=== PATIENT | male | born 1950 | race Caucasian/White ===

== ENCOUNTER 2016-07-02 12:49 | Inpatient (IN) ==
[2016-07-02] MEDS ORDERED: FUROSEMIDE 40 MG/4 ML VIAL IV STA (13:51)
--- NOTE | 2016-07-02 14:12 | CT Report ---
Referring physician: Vik Nicole Exam: CT brain without contrast Date: 07/02/2016 Comparison: 03/24/2016 Reason: Headache Technique: Axial images of the head were obtained without the use of contrast. Total DLP was 1073.10 mGy*cm. Findings: The ventricles remain minimally dilated with no midline displacement. Minimal atrophy and cerebral hypodensities.. There is no evidence of an acute infarction, recent intracranial hemorrhage or abnormal mass effect. The osseous structures appear intact. The mastoid air cells and visualized paranasal sinuses are clear. Impression: No acute intracranial abnormality is identified. Persistent atrophy and microvascular disease with probable minimal compensatory dilatation of the ventricles. The CT exam was performed using one or more of the following dose reduction techniques: Automated exposure control and adjustment of the mA and/or kV according to patient size. PROCEDURE INTERPRETED AT [facility] DEPARTMENT OF RADIOLOGY Final Report Signed by: Dr. Tiffani Ross
--- NOTE | 2016-07-02 14:13 | XRay Report ---
XR chest 2V Date: 07/02/2016 1:51 PM History: Shortness of breath Comparison: 03/24/2016 Technique: PA and lateral chest Findings: The heart remains borderline in size. Reduced parenchymal findings in the lungs with stable mediastinum. No residual pleural effusions with degenerative changes. Impression: COPD with chronic scarring. Interval resolution of the edema/infiltration. PROCEDURE INTERPRETED AT [facility] DEPARTMENT OF RADIOLOGY Final Report Signed by: Dr. Tiffani Ross
--- NOTE | 2016-07-02 14:15 | Emergency Department Note ---
Debra Gonzales Gwan, am scribing for, and in the presence of, Vik Nicole MD 13:53 . Bonnie Gonzales James D, MD, personally performed the services described in this documentation, ascribed by Deion Richardson in my presence, and it is both accurate and complete 412 . Arrival - Arrival Chief Complaint: Weakness Stated Complaint: low heart rate,n/v,swollen,agitated,chest tightnes ED Nursing Triage Note: PT C/O WEAKNESS,HEADACHE, DIZZINESS, AND NAUSEA. STATES HAS FALLEN TWICE IN THE LAST 3 DAYS, DENIES SYNCOPE OR LOC. REPORTS HR HAS BEEN IN THE 40'S TODAY WITH TIGHTNESS TO HIS CHEST. Mode of Arrival: Wheelchair Limitations: No Limitations Source: Patient, Old Records Reviewed, RN Notes Reviewed - History of Present Illness HPI Narrative: Pt is a 65 y/o male who presents to the ED with a c/o weakness, AVITIA, dizziness, lethargic and nausea with an onset 3 days ago. Patient noted that he has had multiple falls and that his heart rate in the 40's today with tightness in his chest. Patient confirmed that he is followed by [place] [facility] and that he has had some edema in bilateral hands. He denies vomiting or any syncope. Patient family stated that pt use to smoke, that he has been "off-balanced" and that he currently uses Home O2. Patient is also followed by [facility] in [place] and that this is who instructed them to bring patient to ED for further evaluation. Family denies that [facility] to report to the local clinic or the clinic in [place]. Pt has a PMHx of HTN, SD, cerebrovascular accident, NIDDM, dyslipidemia , bowel obstruction, gout and stents. No other problems/complaints reported in ED. Onset (ago): day(s) Consistency: constant Severity: moderate Allergies/Adverse Reactions: Allergies Allergy/AdvReac Type Severity Reaction Status Date / Time lisinopril Allergy HIVES Verified 07/02/16 13:05 Home Medications: Home Medications Medication Instructions Recorded Confirmed Type ACETAMIN/diphenhydrAMIN 500-25 2 tablet PO BEDTIME PRN 03/24/16 07/02/16 History [Tylenol PM] Allopurinol 100 mg PO QAM 03/24/16 07/02/16 History Aspirin EC Tab 81 mg PO QAM 03/24/16 07/02/16 History Carvedilol 12.5 mg PO BID 03/24/16 07/02/16 History Clopidogrel [Plavix] 75 mg PO QAM 03/24/16 07/02/16 History Cyanocobalamin (Vitamin B-12) 1,000 mcg PO 1200 03/24/16 07/02/16 History [Vitamin B-12] DULoxetine [Cymbalta] 90 mg PO 1200 03/24/16 07/02/16 History Divalproex [Depakote] 2,000 mg PO QPM 03/24/16 07/02/16 History Furosemide Tab [Lasix Tab] 20 mg PO QAM 03/24/16 07/02/16 History Gabapentin Cap/Tab [Neurontin 600 mg PO QAM 03/24/16 07/02/16 History Cap/Tab] Levothyroxine Sodium 100 mcg PO QAM 03/24/16 07/02/16 History Multivitamin [Multivitamins] 1 each PO 1200 03/24/16 07/02/16 History Nitroglycerin Sl Tab [Nitrostat] 0.4 mg SL Q5M PRN 03/24/16 07/02/16 History Omeprazole [Prilosec] 40 mg PO QAM 03/24/16 07/02/16 History Rosuvastatin Calcium [Crestor] 20 mg PO QPM 03/24/16 07/02/16 History glipiZIDE [Glipizide] 5.5 mg PO BID 03/24/16 07/02/16 History hydrALAZINE TAB [Apresoline Tab] 25 mg PO TID 03/24/16 07/02/16 History metFORMIN [Glucophage] 500 mg PO BID W/MEALS 03/24/16 07/02/16 History Gabapentin 600 mg PO 1200 07/02/16 07/02/16 History Gabapentin 600 mg PO QPM 07/02/16 07/02/16 History Isosorbide Mononitrate [Imdur] 30 mg PO QAM 07/02/16 07/02/16 History amLODIPine [Norvasc] 10 mg PO QAM 07/02/16 07/02/16 History Review of System - Review of System 12 point system: reviewed and no additional remarkable complaints except as stated - Review of System Constitutional: Present: as per HPI, weakness, other (dizziness) Gastrointestinal: Present: as per HPI, nausea Musculoskeletal: Absent: arm pain, back pain, leg pain, neck pain Neurological: Present: as per HPI, headache, weakness Medical,Surgical,& Family Hx - Medical History Cardio: History of: Hypertension, SD Neurology: History of: Cerebrovascular Accident Endocrine: History of: Diabetes Mellitus (NIDDM), Dyslipidemia Gastrointestinal: History of: Bowel Obstruction, GERD Musculoskeletal: History of: Musculoskeletal Problems (gout) - Surgical History Cardiac Surgeries: Sugical HX of: Cardiac Catheterization (STENT X2) - Social History Smoking Status: Never smoker Frequency of Alcohol Use: Rarely Type of Drug Use: None Exam Physical Examination: GENERAL: This is a white male in no apparent distress. VITAL SIGNS: HEENT: Head is normocephalic and atraumatic. Pupils are equally round and reactive to light. Extraocular movement are intact. Oropharynx is benign with moist mucous membranes. NECK: Neck is soft and supple without tenderness. There are no masses. There is no lymphadenopathy. LUNGS: Lungs are clear to auscultation bilaterally. Chest rises symmetrically. There is no chest wall tenderness. CV: Bradycardic rate, regular rhythm ABDOMEN: Abdomen is soft, non-tender to palpation. There are no abnormal masses palpated. There is no organomegaly. Bowel sounds are present and active. SKIN: Skin is warm and dry. No rash. EXTREMITIES: Patient has full range of motion without tenderness. Pt has 2+ pitting edema bilaterally. NEUROLOGIC: Awake, alert, and oriented x4. Cranial nerves II through XII are grossly intact. There are no motorsensory deficits. PSYCHIATRIC: Normal affect. Normal mood. Vital Signs: Vital Signs Temperature 97.4 F L 07/02/16 12:58 Pulse Rate 45 L 07/02/16 12:58 Respiratory Rate 18 07/02/16 12:58 Blood Pressure 141/72 07/02/16 12:58 O2 Sat by Pulse Oximetry 96 07/02/16 12:58 Course - Consultations Consultation #1: Discussed with hospitalist. Patient will be admitted to their service. Coreg will be discontinued. Time: 14:27 Results - Labs Lab Results: I have reviewed the patients labs - EKG EKG results: interpreted by ERMD - Impressions Sinus bradycardia with a rate of [address]-T wave changes, incomplete right bundle branch block. - Diagnostic Findings Procedure: Chest x-ray: image reviewed by me (Cardiomegaly, no pleural effusions , increased pulmonary markings bilaterally.), CT: image reviewed by me (CT head : No acute intracranial lesion or hemorrhage.) Disposition Clinical Impression: Symptomatic bradycardia, Coronary artery disease Case discussed with: patient Disposition: Still a Patient Condition: Stable
--- NOTE | 2016-07-02 14:21 | EKG Report ---
Stationary ECG Study [facility] ER Test Date: 07/02/2016 1:08:06 PM Pat Name: OSMANI NEUMANN Department: Room: Gender: M [employer] Technician: : 1950 Requested by: Vik Vences Order Number: [id number] Reading MD: SYL LYLE Intervals [place] Rate: 51 P: 65 MA: 178 QRS: 29 QRSD: 115 T: 60 QT: 436 QTc: 412 Interpretive Statements SINUS BRADYCARDIA NONSPECIFIC T WAVE ABNORMALITY Electronically Signed On 07-02-16 17:14:12 CDT by SYL LYLE [email or web address]
[2016-07-02] MEDS ORDERED: FUROSEMIDE 40 MG/4 ML VIAL ONE (14:38)
[2016-07-02 14:41] LABS: Basophils % 0.7 % (0.0-0.8); Eosinophils # 0.1 10*3/uL (0.0-0.87); Eosinophils % 1.6 % (0.00-10.9); Hematocrit 33.4 VOL% (42.0-52.0); Hemoglobin 10.9 GM/DL (14.0-18.0); Immature Granulocytes % 0.2 %; Immature Granulocytes Absolute 0.01 #; Lymphocytes # 2.8 10*3/uL (1.4-4.0); Lymphocytes % 50.7 % (21.2-54.2); Mean Corpuscular HGB Conc 32.6 GM/DL (32-36); Mean Corpuscular Hemoglobin 29 PG (27-34); Mean Corpuscular Volume 89.3 FL (87-102); Mean Platelet Volume 8.9 FL (9.6-12.0); Monocytes # 0.4 10*3/uL (0.11-0.8); Monocytes % 7.6 % (1.7-12.7); Neutrophils # 2.2 10*3/uL (1.4-7.4); Neutrophils % 39.2 % (38.7-73.9); Platelet Count 219 T/CUMM (130-400); Red Blood Count 3.74 MC/CUMM (3.8-5.5); Red Cell Distribution Width 14.7 % (9.3-17.3); White Blood Count 5.5 T/CUMM (4-12)
[2016-07-02 15:31] LABS: Albumin 3.7 G/DL (3.4-5.0); Bilirubin,Total 0.5 MG/DL (0.2-1.0); Calcium 8.6 MG/DL (8.5-10.1); Free T4 (Free Thyroxine) 0.97 NG/DL (0.76-1.46); Osmolality,Calculated 283.1 MOS/KG (273-304); Potassium 3.7 MMOL/L (3.5-5.1); Thyroid Stimulating Hormone 1.71 uIU/ml (0.358-3.74); Total Protein 6.6 G/DL (6.4-8.3)
[2016-07-02] MEDS ORDERED: ACETAMINOPHEN 325 MG TABLET PO PRN ×2 (16:21→16:53)
[2016-07-02] MEDS ORDERED: GLUCAGON 1 MG VIAL IM PRN (16:21)
[2016-07-02] MEDS ORDERED: DEXTROSE 50% 25 GM/50 ML VIAL IV PRN (16:21)
--- NOTE | 2016-07-02 16:36 | Hospitalist History & Physical ---
Assessment and Plan (1) Symptomatic bradycardia Status: Acute Assessment and plan: Telemetry monitoring. Hold coreg for now. Monitor patient. Echo ordered. Current Visit: Yes History of Present Illness Chief complaint: weakness History of present illness: Mr. Petty is a 65 year old white male that presented to the ED with c/o weakness and dizziness. Pt stated that he has fallen twice in the past 2 days ( and Saturday, respectively) and that his recorded a heart rate in the 40s. Pt admits to taking coreg twice daily for his blood pressure. This dosage has been increased from 6.25 to 12.5 recently. Pt. also states he has seen edema in both hands and feet. Pt. does admit to chest tightness, but denies radiation of pain. Pt denies fever, chills, shortness of breath. Pt reports being nauseated but not vomiting. Pain is noted in RUQ. Pt. is a and has been seen by the [place] [facility]. Pt. has a history of htn, NH with stents, CVA, dm, dyslipidemia, and gout. The patient will be admitted to the hospitalist service for further eval. Home Medications Medication Instructions Recorded Confirmed Type ACETAMIN/diphenhydrAMIN 500-25 2 tablet PO BEDTIME PRN 03/24/16 07/02/16 History [Tylenol PM] Allopurinol 100 mg PO QAM 03/24/16 07/02/16 History Aspirin EC Tab 81 mg PO QAM 03/24/16 07/02/16 History Carvedilol 12.5 mg PO BID 03/24/16 07/02/16 History Clopidogrel [Plavix] 75 mg PO QAM 03/24/16 07/02/16 History Cyanocobalamin (Vitamin B-12) 1,000 mcg PO 1200 03/24/16 07/02/16 History [Vitamin B-12] DULoxetine [Cymbalta] 90 mg PO 1200 03/24/16 07/02/16 History Divalproex [Depakote] 2,000 mg PO QPM 03/24/16 07/02/16 History Furosemide Tab [Lasix Tab] 20 mg PO QAM 03/24/16 07/02/16 History Gabapentin Cap/Tab [Neurontin 600 mg PO QAM 03/24/16 07/02/16 History Cap/Tab] Levothyroxine Sodium 100 mcg PO QAM 03/24/16 07/02/16 History Multivitamin [Multivitamins] 1 each PO 1200 03/24/16 07/02/16 History Nitroglycerin Sl Tab [Nitrostat] 0.4 mg SL Q5M PRN 03/24/16 07/02/16 History Omeprazole [Prilosec] 40 mg PO QAM 03/24/16 07/02/16 History Rosuvastatin Calcium [Crestor] 20 mg PO QPM 03/24/16 07/02/16 History glipiZIDE [Glipizide] 5.5 mg PO BID 03/24/16 07/02/16 History hydrALAZINE TAB [Apresoline Tab] 25 mg PO TID 03/24/16 07/02/16 History metFORMIN [Glucophage] 500 mg PO BID W/MEALS 03/24/16 07/02/16 History Gabapentin 600 mg PO 1200 07/02/16 07/02/16 History Gabapentin 600 mg PO QPM 07/02/16 07/02/16 History Isosorbide Mononitrate [Imdur] 30 mg PO QAM 07/02/16 07/02/16 History amLODIPine [Norvasc] 10 mg PO QAM 07/02/16 07/02/16 History Allergies Allergy/AdvReac Type Severity Reaction Status Date / Time lisinopril Allergy HIVES Verified 07/02/16 13:05 Medical,Surgical,& Family Hx - Medical History Cardio: History of: Hypertension, [place] Neurology: History of: Cerebrovascular Accident Endocrine: History of: Diabetes Mellitus (NIDDM), Dyslipidemia Gastrointestinal: History of: Bowel Obstruction, GERD Musculoskeletal: History of: Musculoskeletal Problems (gout) - Surgical History Cardiac Surgeries: Sugical HX of: Cardiac Catheterization (STENT X2) - Social History Smoking Status: Never smoker Frequency of Alcohol Use: Rarely Type of Drug Use: None Marital Status: Lives With:: Spouse Functional capacity: independent ambulation - Constitutional Constitutional: Present: frequent falls, headache(s), lethargy. Absent: chills , fever(s) - EENT Eyes: Present: requires corrective lense. Absent: loss of vision Ears: Present: decreased hearing. Absent: ear discharge Nose, mouth and throat: Present: headache(s). Absent: dysphagia - Cardiovascular Cardiovascular: Present: chest pain at rest (midsternal area), edema. Absent: dyspnea - Respiratory Respiratory: Absent: cough - Gastrointestinal Gastrointestinal: Present: abdominal pain (RUQ), constipation, diarrhea, nausea. Absent: vomiting - Genitourinary Genitourinary: Absent: difficulty urinating - Neurological Neurological: Present: dizziness, frequent falls, headache(s). Absent: numbness Exam - Constitutional General appearance: normal weight, no acute distress - Head Head exam: Present: normal inspection, normocephalic - Eye Eye exam: Present: EOMI Pupils: Present: LILLY - ENT ENT exam: Present: normal exam - Neck Neck exam: Present: normal inspection - Respiratory Respiratory exam: Present: clear to auscultation bilaterally - Cardiovascular Cardiovascular exam: Present: bradycardia - GI/Abdominal GI/Abdominal exam: Present: normal bowel sounds, soft. Absent: tenderness - Extremities Exam Extremities exam: Present: normal inspection, normal capillary refill, full ROM , edema - Neurological Exam Neurological exam: Present: alert, oriented X3, normal gait - Psychiatric Psychiatric exam: Present: normal affect, normal mood, depressed - Skin Skin exam: Present: normal color, warm, dry Results - Labs CBC & BMP: 07/02/16 14:29 07/02/16 14:29 Lab Results: I have reviewed the past 24 hour labs
[2016-07-02] MEDS: INSULIN LISPRO 100 UNIT/ML SUBCUT SCH ×2 (16:56→22:14)
[2016-07-02] MEDS: ENOXAPARIN 40 MG/0.4 ML SYRINGE SUBCUT SCH (17:03)
[2016-07-02 18:27] LABS: Apearance,Urine CLEAR (Clear); Bilirubin,Urine Negative (Negative); Blood, Urine Negative (Negative); Glucose,Urine (UA) Negative (Negative); Ketones,Urine Negative (Negative); Mucus,Urine Occasional /LPF (Occasional); Nitrite,Urine Negative (Negative); Protein,Urine 30 MG/DL; RBC,Urine <1 /HPF (0-4); Squamous Epithelial Cell,Urine Occasional /HPF (0-10); Urine Color Straw (Yellow); Urine Specific Gravity 1.005 (1.001-1.035); Urine Urobilinogen < 2.0 EU/DL (0.2-1.0); WBC,Urine <1 /HPF (0-6)
[2016-07-02] MEDS ORDERED: ACETAMINOPHEN/diphenhydrAMINE 500-25 MG TABLET PO PRN (19:21)
[2016-07-02] MEDS ORDERED: NITROGLYCERIN SL 0.4 MG TABLET SL PRN (19:21)
[2016-07-02] MEDS: hydrALAZINE 25 MG TABLET PO SCH (22:11)
[2016-07-03 01:03] LABS: Troponin I Only 0.015 NG/ML (0.00-0.045)
[2016-07-03 04:43] LABS: Basophils % 0.7 % (0.0-0.8); Eosinophils # 0.1 10*3/uL (0.0-0.87); Hematocrit 34.7 VOL% (42.0-52.0); Hemoglobin 11.4 GM/DL (14.0-18.0); Immature Granulocytes % 0.2 %; Immature Granulocytes Absolute 0.01 #; Lymphocytes # 2.1 10*3/uL (1.4-4.0); Lymphocytes % 45.6 % (21.2-54.2); Mean Corpuscular HGB Conc 32.9 GM/DL (32-36); Mean Corpuscular Hemoglobin 29 PG (27-34); Mean Corpuscular Volume 88.3 FL (87-102); Mean Platelet Volume 9.2 FL (9.6-12.0); Monocytes # 0.4 10*3/uL (0.11-0.8); Monocytes % 8.4 % (1.7-12.7); Neutrophils % 43.1 % (38.7-73.9); Platelet Count 248 T/CUMM (130-400); Red Blood Count 3.93 MC/CUMM (3.8-5.5); Red Cell Distribution Width 14.6 % (9.3-17.3); White Blood Count 4.5 T/CUMM (4-12)
[2016-07-03 05:17] LABS: Calcium 8.8 MG/DL (8.5-10.1); Osmolality,Calculated 292.6 MOS/KG (273-304); Potassium 3.5 MMOL/L (3.5-5.1)
[2016-07-03 05:24] LABS: Troponin I Only < 0.015 NG/ML (0.00-0.045)
--- NOTE | 2016-07-03 07:26 | Hospitalist Progress Note ---
Assessment and Plan (1) Symptomatic bradycardia Status: Acute Current Visit: Yes Hospitalist: Subjective Interval history: 65 yo male with history of hypertension, diabetes mellitus, ESME, and coronary artery disease presenting with what appears to be symptomatic sinus bradycardia associated with the use of intermediate dose Coreg. MT interval normal with minor nonspecific QRS delay. Rhythm sinus overnight. On chronic thyroid replacement therapy. Exam - Constitutional Vitals: Period Temp Pulse Resp BP Sys/Torres Pulse Ox Last 24 Hr 96.8 F-99 F 41-52 14-18 143-187/72-86 42-98 General appearance: over weight - Respiratory Respiratory exam: Present: clear to auscultation bilaterally. Absent: rales, rhonchi, wheezes - Cardiovascular Cardiovascular exam: Present: regular rate and rhythm - GI/Abdominal GI/Abdominal exam: Present: normal bowel sounds - Extremities Exam Extremities exam: Absent: edema - Neurological Exam Neurological exam: Present: alert, oriented X3 Results - Labs CBC & BMP: 07/03/16 04:16 07/03/16 04:16 Labs: cTnI negative.
--- NOTE | 2016-07-03 08:03 | EKG Report ---
Stationary ECG Study [facility] Test Date: 07/03/2016 7:39:25 AM Pat Name: OSMANI NEUMANN Department: Room: 288 Gender: M [employer] Field Technician: SANTA : 1950 Requested by: Sukhi Williamson Order Number: [id number] Reading MD: MANUELA FRANCISCO Intervals [place] Rate: 49 P: 100 VA: 186 QRS: 24 QRSD: 118 T: 122 QT: 450 QTc: 421 Interpretive Statements SINUS BRADYCARDIA MODERATE INTRAVENTRICULAR CONDUCTION DELAY Electronically Signed On 07-03-16 11:50:44 CDT by MANUELA FRANCISCO [email or web address]
[2016-07-03] MEDS: INSULIN LISPRO 100 UNIT/ML SUBCUT SCH ×4 (08:47→22:03)
[2016-07-03] MEDS: ASPIRIN EC 81 MG TABLET PO SCH (08:49)
[2016-07-03] MEDS: LEVOTHYROXINE 100 MCG TABLET PO SCH (08:49)
[2016-07-03] MEDS: amLODIPine 10 MG TABLET PO SCH (08:49)
[2016-07-03] MEDS: GABAPENTIN 300 MG CAPSULE PO SCH ×3 (08:50→22:01)
[2016-07-03] MEDS: FUROSEMIDE 20 MG TABLET PO SCH (08:50)
[2016-07-03] MEDS: PANTOPRAZOLE 40 MG TABLET PO SCH ×2 (08:50→08:58)
[2016-07-03] MEDS: CLOPIDOGREL 75 MG TABLET PO SCH (08:50)
[2016-07-03] MEDS: hydrALAZINE 25 MG TABLET PO SCH ×3 (08:51→22:01)
[2016-07-03] MEDS: ISOSORBIDE MONONITRATE 30 MG TABLET PO SCH (08:51)
[2016-07-03] MEDS: ALLOPURINOL 100 MG TABLET PO SCH (08:51)
--- NOTE | 2016-07-03 09:11 | Ultrasound Report ---
Referring Physician: Sukhi Williamson NP Exam: US abdomen Date: July 03, 2016 Reason: Right upper quadrant abdominal pain Comparison: CT abdomen and pelvis March 24, 2016 Technique: Grayscale ultrasound images of the abdomen were obtained. Ultrasound images were captured and stored. Findings: The liver measures 22.1 cm in length, which is mildly enlarged. No suspicious hepatic lesion is identified. There may be mild hepatic steatosis. The gallbladder is not identified, but there is a history of cholecystectomy. The common bile duct is normal in size, measuring 0.4 cm in diameter. The right kidney measures 10.8 x 5.4 x 5.4 cm, and the left kidney measures 11.8 x 7.2 x 6.2 cm. There are 2 cysts at the lower pole of the right kidney. One measures 1.3 x 1.3 x 1.2 cm. The other is exophytic and measures 2.6 x 2.4 x 2.2 cm. Additional renal cysts were seen on the prior CT but are not well demonstrated on this study, likely secondary to their size and location. The pancreas is largely obscured by bowel gas. The spleen measures 10.0 x 3.9 x 3.7 cm. Splenic volume is 144 cc. The visualized IVC appears patent, and no ascites is seen. The abdominal aorta is largely obscured by bowel gas. Impression: 1. There are 2 cysts at the lower pole of the right kidney, measuring up to 2.6 cm. Additional renal cysts were seen on the previous CT but are not well demonstrated on this study, likely secondary to their size and location. Follow-up could be performed using CT. 2. Mild hepatomegaly and possible mild hepatic steatosis. 3. The gallbladder is not identified, consistent with the history of cholecystectomy. PROCEDURE INTERPRETED AT [facility] DEPARTMENT OF RADIOLOGY Final Report Signed by: Dr. Prem Hummel
[2016-07-03] MEDS: ONDANSETRON 4 MG/2 ML VIAL IV PRN (11:12)
[2016-07-03] MEDS: DULoxetine 30 MG CAPSULE PO SCH (11:53)
--- NOTE | 2016-07-03 15:51 | ECHO Report ---
Lobo Petty Exam Date: 07/03/2016 07:24 Referring Physician: Technologist: Deepika Abbott RDCS Age: 65 Ht (in): 70 Wt (lb): 260 Gender: M Exam Location: [facility] Echo Indications: Symptomatic bradycardia, Weakness, Dizziness and giddiness, NIDDM, Chest pain, unspecified, Edema, unspecified, CAD with previous stents BP: 150 / 75 HR: 55 Rhythm: Sinus Technical Quality: Technically difficult study IMPRESSIONS EF 50 % at slow heart rate. Grade I/IV diastolic dysfunction (abnormal relaxation filling pattern), normal to mildly elevated filling pressures. Moderately increased right ventricular size. Moderately increased right atrial size. Moderately increased left atrial size. Mildly thickened mitral valve. Trace mitral valve regurgitation. Aortic valve sclerosis. Trace aortic valve regurgitation. Moderate tricuspid valve regurgitation. QQF67-73 mmHG. Pulmonic valve not well visualized. Normal pericardium without effusion. Normal ascending aorta dimension. MEASUREMENTS (Male / Female) Normal Values 2D ECHO LV Diastolic Diameter PLAX 6.1 cm 4.2 - 5.9 / 3.9 - 5.3 cm LV Systolic Diameter PLAX 4.7 cm LV Fractional Shortening PLAX 23.2 % IVS Diastolic Thickness 1.3 cm 0.6 - 1.0 / 0.6 - 0.9 cm LVPW Diastolic Thickness 1.3 cm 0.6 - 1.0 / 0.6 - 0.9 cm RV Internal Dim ED PLAX 4.0 cm Aortic Root Diameter 3.4 cm LA Systolic Diameter LX 5.0 cm 3.0 - 4.0 / 2.7 - 3.8 cm DOPPLER TR Peak Velocity 300.0 cm/s TR Peak Gradient 36.0 mmHg FINDINGS Left Ventricle EF 50 % at slow heart rate. Grade I/IV diastolic dysfunction (abnormal relaxation filling pattern), normal to mildly elevated filling pressures. Right Ventricle Moderately increased right ventricular size. Right Atrium Moderately increased right atrial size. Left Atrium Moderately increased left atrial size. Mitral Valve Mildly thickened mitral valve. Trace mitral valve regurgitation. Aortic Valve Aortic valve sclerosis. Trace aortic valve regurgitation. Tricuspid Valve Morphologically normal tricuspid valve. Moderate tricuspid valve regurgitation. RHE21-82 mmHG. Pulmonic Valve Pulmonic valve not well visualized. Pericardium Normal pericardium without effusion. Aorta Normal ascending aorta dimension. Dandre Marr (Electronically Signed) Final Date: 03 July 2016 15:50
[2016-07-03] MEDS: ENOXAPARIN 40 MG/0.4 ML SYRINGE SUBCUT SCH (16:33)
[2016-07-03] MEDS ORDERED: GABAPENTIN 300 MG CAPSULE PO SCH (19:00)
[2016-07-03] MEDS ORDERED: DIVALPROEX 500 MG TABLET PO SCH (19:00)
[2016-07-03] MEDS: DIVALPROEX 500 MG TABLET PO SCH (22:00)
--- NOTE | 2016-07-04 07:47 | Hospitalist Progress Note ---
Assessment and Plan (1) Symptomatic bradycardia Status: Acute Assessment and plan: Beta-blockade sensitivity, on hold for 3 doses. Will follow need for alternative blood pressure medication. Current Visit: Yes Hospitalist: Subjective Interval history: 65 yo male presenting with symptomatic bradycardia on intermediate dose of Coreg. History of coronary artery disease, ESME, hypertension, and diabetes mellitus. Last Coreg was AM 4/10. Remains in sinus rhythm with normal intervals, no recurrent symptoms. Blood pressure not rising significantly. Exam - Constitutional Vitals: Period Temp Pulse Resp BP Sys/Torres Pulse Ox Last 24 Hr 96.9 F-98.6 F 46-56 16-20 133-156/65-86 92-100 General appearance: over weight - Respiratory Respiratory exam: Present: clear to auscultation bilaterally - Cardiovascular Cardiovascular exam: Present: regular rate and rhythm - GI/Abdominal GI/Abdominal exam: Present: normal bowel sounds - Extremities Exam Extremities exam: Absent: edema - Neurological Exam Neurological exam: Present: alert, oriented X3 Results - Labs CBC & BMP: 07/03/16 04:16 07/03/16 04:16
[2016-07-04] MEDS: INSULIN LISPRO 100 UNIT/ML SUBCUT SCH ×4 (08:34→21:52)
[2016-07-04] MEDS: amLODIPine 10 MG TABLET PO SCH (08:34)
[2016-07-04] MEDS: LOSARTAN 50 MG TABLET PO SCH (08:34)
[2016-07-04] MEDS: ALLOPURINOL 100 MG TABLET PO SCH (08:35)
[2016-07-04] MEDS: GABAPENTIN 300 MG CAPSULE PO SCH ×4 (08:35→22:19)
[2016-07-04] MEDS: PANTOPRAZOLE 40 MG TABLET PO SCH ×2 (08:35→08:36)
[2016-07-04] MEDS: ASPIRIN EC 81 MG TABLET PO SCH (08:35)
[2016-07-04] MEDS: FUROSEMIDE 20 MG TABLET PO SCH (08:35)
[2016-07-04] MEDS: CLOPIDOGREL 75 MG TABLET PO SCH (08:36)
[2016-07-04] MEDS: LEVOTHYROXINE 100 MCG TABLET PO SCH (08:36)
[2016-07-04] MEDS: ISOSORBIDE MONONITRATE 30 MG TABLET PO SCH (08:36)
[2016-07-04] MEDS: DULoxetine 30 MG CAPSULE PO SCH (11:51)
[2016-07-04] MEDS: ENOXAPARIN 40 MG/0.4 ML SYRINGE SUBCUT SCH (16:35)
[2016-07-04] MEDS: ONDANSETRON 4 MG/2 ML VIAL IV PRN (16:38)
[2016-07-04] MEDS: DIVALPROEX 500 MG TABLET PO SCH (22:16)
--- NOTE | 2016-07-05 08:30 | Hospitalist Progress Note ---
Assessment and Plan (1) Symptomatic bradycardia Status: Acute Assessment and plan: Patient was initially thought to have possible beta-eli sensitivity with symptomatic bradycardia. No significant increase in heart rate has been encountered with discontinuing the beta-eli and the patient is reporting a stronger correlation with exercise activity raising the possibility of chronotropic insufficiency. Current Visit: Yes (2) Coronary artery disease Status: Chronic Assessment and plan: Previous coronary intervention at 2 sites in the right coronary artery. Current Visit: Yes Qualifiers: Coronary Disease-Associated Artery/Lesion type: [place] artery Hospitalist: Subjective Interval history: 65-year-old male who presented with what was initially felt to be a symptomatic bradycardia on an intermediate dose of Coreg. He is a history of coronary artery disease with percutaneous interventions last fall these were performed by the card that he has in the distal right coronary circulation the describes a 70% residual stenosis in a another artery that was not addressed. He is on chronic thyroid replacement therapy is diabetic and has a history of obstructive sleep apnea and hypertension. His Coreg was held following admission on the and non-chronotropicaly active blood pressure medications were introduced and adjusted. He is maintaining sinus rhythm. He is still showing a sinus bradycardia and reports that yesterday with an effort with vigorous walking on the singer developed a recurrence of her symptoms consisting of a pleasant sensation of nausea in the abdomen with shortness of breath. There was no chest pain. Monitor shows no augmentation heart rate with activity. Will anticipate performing a stress myocardial perfusion imaging study in order to evaluate for possible chronotropic insufficiency as a source for his symptoms imaging will be undertaken in order to exclude active ischemia. Exam - Constitutional Vitals: Period Temp Pulse Resp BP Sys/Torres Pulse Ox Last 24 Hr 96.4 F-97.7 F 44-54 16-20 143-177/75-88 90-99 General appearance: over weight - Respiratory Respiratory exam: Present: clear to auscultation bilaterally. Absent: rales, rhonchi, wheezes - Cardiovascular Cardiovascular exam: Present: regular rate and rhythm - GI/Abdominal GI/Abdominal exam: Present: normal bowel sounds - Extremities Exam Extremities exam: Absent: edema - Neurological Exam Neurological exam: Present: alert, oriented X3 Results - Labs CBC & BMP: 07/03/16 04:16 07/03/16 04:16
[2016-07-05] MEDS: INSULIN LISPRO 100 UNIT/ML SUBCUT SCH ×4 (08:38→21:08)
[2016-07-05] MEDS: CLOPIDOGREL 75 MG TABLET PO SCH (09:16)
[2016-07-05] MEDS: ISOSORBIDE MONONITRATE 30 MG TABLET PO SCH (09:16)
[2016-07-05] MEDS: GABAPENTIN 300 MG CAPSULE PO SCH ×3 (09:16→21:09)
[2016-07-05] MEDS: ASPIRIN EC 81 MG TABLET PO SCH (09:16)
[2016-07-05] MEDS: LOSARTAN 50 MG TABLET PO SCH (09:16)
[2016-07-05] MEDS: ALLOPURINOL 100 MG TABLET PO SCH (09:16)
[2016-07-05] MEDS: amLODIPine 10 MG TABLET PO SCH (09:16)
[2016-07-05] MEDS: LEVOTHYROXINE 100 MCG TABLET PO SCH (09:17)
[2016-07-05] MEDS: FUROSEMIDE 20 MG TABLET PO SCH (09:17)
[2016-07-05] MEDS: PANTOPRAZOLE 40 MG TABLET PO SCH ×2 (09:17)
[2016-07-05] MEDS: DULoxetine 30 MG CAPSULE PO SCH (12:35)
[2016-07-05] MEDS: ENOXAPARIN 40 MG/0.4 ML SYRINGE SUBCUT SCH (16:34)
[2016-07-05] MEDS: DIVALPROEX 500 MG TABLET PO SCH (21:09)
[2016-07-06] MEDS: LOSARTAN 50 MG TABLET PO SCH (09:07)
[2016-07-06] MEDS: amLODIPine 10 MG TABLET PO SCH (09:07)
[2016-07-06] MEDS: GABAPENTIN 300 MG CAPSULE PO SCH ×3 (09:07→20:30)
[2016-07-06] MEDS: LEVOTHYROXINE 100 MCG TABLET PO SCH (09:08)
[2016-07-06] MEDS: ISOSORBIDE MONONITRATE 30 MG TABLET PO SCH (09:08)
[2016-07-06] MEDS: PANTOPRAZOLE 40 MG TABLET PO SCH ×2 (09:08→09:10)
[2016-07-06] MEDS: ASPIRIN EC 81 MG TABLET PO SCH (09:08)
[2016-07-06] MEDS: FUROSEMIDE 20 MG TABLET PO SCH (09:08)
[2016-07-06] MEDS: ALLOPURINOL 100 MG TABLET PO SCH (09:08)
[2016-07-06] MEDS: CLOPIDOGREL 75 MG TABLET PO SCH (09:08)
[2016-07-06] MEDS: INSULIN LISPRO 100 UNIT/ML SUBCUT SCH ×4 (09:16→20:30)
[2016-07-06 09:20] LABS: Basophils % 0.5 % (0.0-0.8); Eosinophils # 0.1 10*3/uL (0.0-0.87); Eosinophils % 1.5 % (0.00-10.9); Hematocrit 38.8 VOL% (42.0-52.0); Hemoglobin 12.9 GM/DL (14.0-18.0); Immature Granulocytes % 0.3 %; Immature Granulocytes Absolute 0.02 #; Lymphocytes # 2.4 10*3/uL (1.4-4.0); Lymphocytes % 41.4 % (21.2-54.2); Mean Corpuscular HGB Conc 33.2 GM/DL (32-36); Mean Corpuscular Hemoglobin 29 PG (27-34); Monocytes # 0.5 10*3/uL (0.11-0.8); Monocytes % 7.6 % (1.7-12.7); Neutrophils # 2.9 10*3/uL (1.4-7.4); Neutrophils % 48.7 % (38.7-73.9); Platelet Count 276 T/CUMM (130-400); Red Blood Count 4.41 MC/CUMM (3.8-5.5); Red Cell Distribution Width 14.7 % (9.3-17.3); White Blood Count 5.9 T/CUMM (4-12)
[2016-07-06] MEDS ORDERED: diphenhydrAMINE CAP 25 MG CAPSULE PO ONE (09:22)
[2016-07-06] MEDS ORDERED: POTASSIUM CHLORIDE RIDER 10 MEQ in PREMIX 1 EACH IV PRN (09:22)
[2016-07-06] MEDS ORDERED: MAGNESIUM SULF RIDER 2 GM in PREMIX 1 EACH IV PRN (09:22)
[2016-07-06] MEDS ORDERED: DIAZEPAM 5 MG TABLET PO ONE (09:22)
--- NOTE | 2016-07-06 09:22 | Cardiology Consult Note ---
Assessment and Plan - Time spent with patient Time spent with patient: Greater than 30 minutes (1) Chest pain Status: Acute Assessment and plan: SEE PLAN OF CARE LISTED BELOW Current Visit: Yes (2) Hypertension Status: Chronic Assessment and plan: SEE PLAN OF CARE LISTED BELOW Current Visit: Yes (3) Dyslipidemia Status: Chronic Assessment and plan: SEE PLAN OF CARE LISTED BELOW Current Visit: Yes (4) Obesity (BMI 35.0-39.9 without comorbidity) Status: Chronic Assessment and plan: SEE PLAN OF CARE LISTED BELOW Current Visit: Yes (5) Sleep apnea Status: Chronic Assessment and plan: SEE PLAN OF CARE LISTED BELOW Current Visit: Yes (6) Diabetes Status: Chronic Assessment and plan: SEE PLAN OF CARE LISTED BELOW Current Visit: Yes (7) Symptomatic bradycardia Status: Acute Assessment and plan: SEE PLAN OF CARE LISTED BELOW Current Visit: Yes (8) Coronary artery disease Status: Chronic Assessment and plan: SEE PLAN OF CARE LISTED BELOW Current Visit: Yes Qualifiers: Coronary Disease-Associated Artery/Lesion type: [place] artery History of Present Illness - Data of Consult Patient: new to practice Consult date: 07/06/16 Requesting Physician: Joshua Phillips - Consult Narrative Reason for consult: chest pain, known CAD History of present illness: Mr. Petty is a 65 year old male followed by inspector repairer in [place], [place] at the [facility]. Risk factors include: Age, known coronary artery disease, hypertension, dyslipidemia, diabetes, obesity, sedentary lifestyle, family history of premature coronary artery disease. Patient's last stent was May to the distal RCA. Patient was admitted for chest pain, weakness, dizziness, lightheadedness. He was found to be in sinus bradycardia in the 40s while taking Coreg. He had several falls prior to admission due to general feelings of being "off balance" . Since holding his beta blockade, heart rate has improved to the 50s. Cardiac biomarkers were negative. EKG unremarkable. Patient reports over the past several weeks he has had some chest discomfort located in the left breast area occurring primarily with exertion. This is relieved with rest. He can identify ambulation as the only sherman trigger and wrist has relieved it. Rates discomfort as a 7 on a scale of 1-10. He is currently chest pain-free. I does not radiate, cause nausea, vomiting or diaphoresis. Reading a copy of most recent cardiac catheterization as provided by 's phone records reveals the following: Left main okay, LAD diffuse nonobstructive disease with small ostial diagonal stenosis 70% as before. Not good target for any revascularization. Left circumflex occluded after early marginal/ramus branch more distal marginal fills by left to left and right to right collaterals. RCA is dominant diffuse nonobstructive, ectatic disease proximally as before with widely patent stents 2 more distally. Patient underwent stress testing in [place] April 2016 and was given favorable results. He underwent stress testing for complaints of chest pain. The chest discomfort continues. ASSESSMENT/PLAN: 1. KNOWN CAD -n.p.o. planned cardiac catheterization today 2. HYPERTENSION -will adjust medications accordingly during hospital stay for good blood pressure control. In the past he has had angioedema on lisinopril. ARB was started during this admission and we will monitor his symptoms closely. 3. DYSLIPIDEMIA -continue lipid-lowering agent. 4. DIABETES -holding metformin. 5. OBESITY -dietary counseling prior to discharge 6. SLEEP APNEA -uses sleep device appropriately 7. FAMILY HISTORY OF PREMATURE CAD -father from [place] at 58 8. CHEST PAIN -chest pain is concerning for angina. Had normal stress test June 2016 with continued chest discomfort. 9. BRADYCARDIA - holding lo blocking agents. May benefit from event monitor at discharge CC: Joshua Phillips MD - Home Medications and Allergies Home Medications: Home Medications Medication Instructions Recorded Confirmed Type ACETAMIN/diphenhydrAMIN 500-25 2 tablet PO BEDTIME PRN 03/24/16 07/02/16 History [Tylenol PM] Allopurinol 100 mg PO QAM 03/24/16 07/02/16 History Aspirin EC Tab 81 mg PO QAM 03/24/16 07/02/16 History Carvedilol 12.5 mg PO BID 03/24/16 07/02/16 History Clopidogrel [Plavix] 75 mg PO QAM 03/24/16 07/02/16 History Cyanocobalamin (Vitamin B-12) 1,000 mcg PO 1200 03/24/16 07/02/16 History [Vitamin B-12] DULoxetine [Cymbalta] 90 mg PO 1200 03/24/16 07/02/16 History Divalproex [Depakote] 2,000 mg PO QPM 03/24/16 07/02/16 History Furosemide Tab [Lasix Tab] 20 mg PO QAM 03/24/16 07/02/16 History Gabapentin Cap/Tab [Neurontin 600 mg PO QAM 03/24/16 07/02/16 History Cap/Tab] Levothyroxine Sodium 100 mcg PO QAM 03/24/16 07/02/16 History Multivitamin [Multivitamins] 1 each PO 1200 03/24/16 07/02/16 History Nitroglycerin Sl Tab [Nitrostat] 0.4 mg SL Q5M PRN 03/24/16 07/02/16 History Omeprazole [Prilosec] 40 mg PO QAM 03/24/16 07/02/16 History Rosuvastatin Calcium [Crestor] 20 mg PO QPM 03/24/16 07/02/16 History glipiZIDE [Glipizide] 5.5 mg PO BID 03/24/16 07/02/16 History hydrALAZINE TAB [Apresoline Tab] 25 mg PO TID 03/24/16 07/02/16 History metFORMIN [Glucophage] 500 mg PO BID W/MEALS 03/24/16 07/02/16 History Gabapentin 600 mg PO 1200 07/02/16 07/02/16 History Gabapentin 600 mg PO QPM 07/02/16 07/02/16 History Isosorbide Mononitrate [Imdur] 30 mg PO QAM 07/02/16 07/02/16 History amLODIPine [Norvasc] 10 mg PO QAM 07/02/16 07/02/16 History Allergies/Adverse Reactions: Allergies Allergy/AdvReac Type Severity Reaction Status Date / Time lisinopril Allergy HIVES Verified 07/02/16 13:05 Review of systems: REVIEW OF SYSTEMS: - Constitutional Constitutional: Present: Fatigue, near syncope.. Absent, anorexia, night sweats - EENT Eyes: Absent: blurry vision, loss of vision, diplopia Ears: Absent: decreased hearing, ear pain, ear discharge - Cardiovascular Cardiovascular: Present: chest pain with exertion, dyspnea on exertion. Denies edema, palpitations. Absent: chest pain with deep breath, claudication, - Respiratory Respiratory: Present: POOL, cough. Absent: wheezing, hemoptysis, change in phlegm color - Gastrointestinal Gastrointestinal: Present: constipation. Absent: adbominal pain, hematemesis , hematochezia, melena, change in bowel habits, nausea - Genitourinary Genitourinary: Absent: difficulty urinating, dysuria, urinary hesitancy, flank pain - Musculoskeletal Musculoskeletal: Present: back pain Absent: joint swelling, muscle cramps, muscle weakness - Neurological Neurological: Present: normal gait without frequent falls. Absent: dizziness, hemiparesis - Psychiatric Psychiatric: Absent: anxiety, depression, difficulty concentrating - Endocrine Endocrine: Present: fatigue. Absent: cold intolerance, heat intolerance, polyuria, polyphagia, polydipsia - Hematologic/Lymphatic Hematologic/Lymphatic: Present: easy bruising. Absent: easy bleeding, easy bruisability -Integumentary Integumentary: Absent: lesions, rashes, skin breakdown Medical,Surgical,& Family Hx - Medical History Cardio: History of: CAD, Hypertension, [place] Neurology: History of: Cerebrovascular Accident Endocrine: History of: Diabetes Mellitus (NIDDM), Dyslipidemia Gastrointestinal: History of: Bowel Obstruction, GERD Musculoskeletal: History of: Musculoskeletal Problems (gout) - Surgical History Cardiac Surgeries: Sugical HX of: Cardiac Catheterization (STENT X2) - Social History Smoking Status: Never smoker Have you smoked in the last 12 months: No Frequency of Alcohol Use: Rarely Type of Drug Use: None Marital Status: Lives With:: Spouse Functional capacity: independent ambulation Physical Examination Vital Signs Temp Pulse Resp BP Pulse Ox 97.4 F L 45 L 18 141/72 96 07/02/16 12:58 07/02/16 12:58 07/02/16 12:58 07/02/16 12:58 07/02/16 12:58 General: [Appears well with no apparent distress.] [Pleasant and cooperative. ] [Appears comfortable.] HEENT: [PERRL, normocephalic, atraumatic. Mucous membranes moist. No jaundice noted. Conjunctiva moist and clear, sclerae anicteric] Neck: No JVD/HJR, no thyromegaly or lymphadenopathy noted. No carotid bruit appreciated Cardiac: [Regular rate and rhythm.] [No murmur rub or gallop.] Lungs: [Clear to auscultation without accessory muscle use to assist the respiratory pattern.] Not requiring oxygen Abdomen: Soft, bowel sounds normoactive. Nontender and nondistended. No abdominal bruit or thrill noted. No masses noted. Musculoskeletal: No fluid collection. Decreased range of motion is noted. Extremities: No clubbing, cyanosis noted. [ No edema noted.] Upper extremity pulses 2+. Lower extremity pulses 2+. Capillary refill less than 3 seconds. Skin: No unusual lesions or rashes. No skin breakdown appreciated. Neuro: Awake, alert and oriented 3. Moves all extremities well without hemiparesis or paralysis. No essential tremor is appreciated. Result/EKG - Labs CBC & BMP: 07/06/16 08:31 07/03/16 04:16 Lab Results: I have reviewed the past 24 hour labs Labs: Laboratory Results - last 24 hr 07/05/16 07/05/16 07/05/16 11:42 15:37 19:20 POC Glucose 131 H 94 241 H 07/06/16 07:52 POC Glucose 119 H - Diagnostic Findings Procedure: Chest x-ray: report reviewed by me - EKG EKG results: interpreted by me EKG shows: bradycardia
[2016-07-06 09:31] LABS: PT Patient Result 10.5 SECS
[2016-07-06 09:44] LABS: Magnesium 2.1 MG/DL (1.8-2.4); Potassium 4.3 MMOL/L (3.5-5.1)
--- NOTE | 2016-07-06 10:28 | Hospitalist Progress Note ---
Assessment and Plan - Time spent with patient Time spent with patient: Greater than 30 minutes (1) Chest pain Problem details: Continue ASA and plavix. Appreciate Cards assistance. Cardiac cath per Cards today. Status: Acute Current Visit: Yes (2) Symptomatic bradycardia Status: Acute Assessment and plan: Continue tele monitoring. Current Visit: Yes (3) Coronary artery disease Problem details: Continue home meds. Status: Chronic Current Visit: Yes Qualifiers: Coronary Disease-Associated Artery/Lesion type: [place] artery (4) Hypertension Problem details: Continue current treatment plan. Status: Chronic Current Visit: Yes (5) Dyslipidemia Problem details: Continue current treatment plan. Status: Chronic Current Visit: Yes (6) Obesity (BMI 35.0-39.9 without comorbidity) Problem details: Educated pt on healthy diet, exercist option in order to loose weight. Status: Chronic Current Visit: Yes (7) Sleep apnea Status: Chronic Current Visit: Yes (8) Diabetes Problem details: Continue current treatment plan Status: Chronic Current Visit: Yes Hospitalist: Subjective Interval history: 07/06/16: No overnight acute event. Still feeling dizzy sometimes. Still sinus adelaide on tele. Will do cardiac cath today per Cards. Pt has cardiac stent put in at [facility] about 2 years ago at [facility] in [place], [place]. Deny fever, wheezing, SOB, cough, N/V/D, abd pain, dysuria or rash. Per Dr. Phillips's note on 07/05/16: 65-year-old male who presented with what was initially felt to be a symptomatic bradycardia on an intermediate dose of Coreg. He is a history of coronary artery disease with percutaneous interventions last fall these were performed by the card that he has in the distal right coronary circulation the describes a 70% residual stenosis in a another artery that was not addressed. He is on chronic thyroid replacement therapy is diabetic and has a history of obstructive sleep apnea and hypertension. His Coreg was held following admission on the and non- chronotropicaly active blood pressure medications were introduced and adjusted. He is maintaining sinus rhythm. He is still showing a sinus bradycardia and reports that yesterday with an effort with vigorous walking on the singer developed a recurrence of her symptoms consisting of a pleasant sensation of nausea in the abdomen with shortness of breath. There was no chest pain. Monitor shows no augmentation heart rate with activity. Will anticipate performing a stress myocardial perfusion imaging study in order to evaluate for possible chronotropic insufficiency as a source for his symptoms imaging will be undertaken in order to exclude active ischemia. Exam - Constitutional Vitals: Period Temp Pulse Resp BP Sys/Torres Pulse Ox Last 24 Hr 97.1 F-98.7 F 50-55 16-20 141-152/71-87 96-99 Exam: GENERAL: NAD, AAOx3. HEENT: Pupils equally round and reactive to light, conjunctivae clear. TMs francois and translucent. Normal lips, teeth and gums. NECK: Supple without mass. CHEST: Normal shape, good air movement, no retractions. CV: Bradycardia, no gallops, 2+ peripheral pulses LUNGS: Clear to auscultation; no rales, rhonchi, or wheezes. ABDOMEN: Soft, nontender, and no hepatosplenomegaly. SKIN: No rash or edema. LYMPH: No anterior or posterior cervical, or supraclavicular lymphadenopathy. NEURO: No gross motor deficits noted. Results - Labs CBC & BMP: 07/06/16 08:31 07/06/16 08:31
[2016-07-06] MEDS: SODIUM CHLORIDE 0.45% 1,000 ML IV SCH ×2 (10:46→17:23)
[2016-07-06] MEDS: DULoxetine 30 MG CAPSULE PO SCH (12:07)
[2016-07-06] MEDS ORDERED: HEPARIN/NACL 0.9% 2 UNITS/ML 1,000 ML IV ONE (13:00)
[2016-07-06] MEDS ORDERED: LIDOCAINE 1% 20 ML VIAL ONE (13:00)
[2016-07-06] MEDS ORDERED: NITROGLYCERIN DRIP 50 MG/250 ML BOTTLE IV ONE (14:02)
[2016-07-06] MEDS ORDERED: VERAPAMIL 5 MG/2 ML VIAL ONE (14:02)
[2016-07-06] MEDS ORDERED: ENOXAPARIN 60 MG/0.6 ML SYRINGE ONE (14:16)
--- NOTE | 2016-07-06 14:41 | Cardiac Catheterization ---
Date of Procedure:: 07/06/16 Procedure: CLINICAL HISTORY: The patient has known multivessel coronary artery disease. He presented with bradycardia and also had some chest pain symptoms. He is undergoing cardiac catheterization for definitive coronary artery assessment and possible revascularization. PROCEDURES PERFORMED: 1. Right radial percutaneous arteriotomy 2. Left heart catheterization 3. Resting hemodynamics 4. Left ventriculography. 5. Coronary arteriography 6. Hemoband placement DESCRIPTION OF PROCEDURE: After obtaining informed consent, the patient was taken to the candlemaking laborer, prepped and draped in the usual sterile manner. We accessed the right radial artery using modified Seldinger technique in the usual fashion. We placed a 6-Lux[place]bourgish slim sheath without difficulty. We then used a Tig catheter to engage the right coronary and left main coronary arteries to perform angiography in multiple orthogonal views. There were no problems or complications during the procedure. We then used an angled pigtail catheter to perform a left heart catheterization with left ventriculogram and pressure measurement in the usual fashion. After removing the catheter, we placed a HemoBand and removed the sheath without difficulty. There were no problems during the case. HEMODYNAMICS: Please see the accompanying data sheet. CORONARIES: The left main coronary artery is a very large caliber vessel which trifurcates into the left anterior descending left circumflex flex and ramus intermedius branches. The left main coronary artery is angiographically free of significant obstructive disease. The left main coronary artery is angiographically free of significant obstructive disease. The left circumflex coronary artery is a large caliber vessel which is occluded in its midsegment. The distal circumflex coronary artery is seen filling by collaterals from the left and from the right. The ramus intermedius is essentially a bifurcating vessel at its origin. Both sides of the bifurcation have luminal disease. The more anterior branch has a ostial/proximal 70% stenosis. The remainder of both vessels have moderate diffuse luminal irregularities. The left anterior descending is a large caliber vessel which gives off a diagonal in its midsegment which is a relatively small vessel. There are diffuse luminal irregularities in the LAD of up to 40% but nothing seems to be high-grade. There is a 70% stenosis in the ostium of the diagonal branch. The right coronary artery is a moderate to large caliber vessel which gives off a posterior descending artery and a posterolateral system. It also provides collateral filling of the distal left circumflex coronary artery. There is diffuse moderate to heavy plaque burden throughout the right coronary artery of up to 50-60% stenosis, but I don't see any focal high-grade obstructive disease. There are stents in the mid to distal right coronary artery which appeared to be widely patent. LEFT VENTRICULOGRAPHY: Left ventriculogram shows left ventricular ejection fraction of approximately 50% with normal regional wall motion. IMPRESSION: 1. Known occlusion of the left circumflex coronary artery with collateral filling from both the left and right. 2. Moderate diffuse disease involving the right, left anterior descending, and ramus intermedius branches as described above. 3. Preserved left ventricular systolic function. PLAN: Although this is the first time the patient has undergone cardiac catheterization at this institution, he had a old cath report which describes essentially the same findings that we see today. He had a low risk noninvasive evaluation recently by his primary advertising sales executive. At this point, I think continued medical management would be the best choice. After recovery from his procedure I think he could be discharged home later today. He can follow-up with his primary advertising sales executive or with myself or one of the other [facility] advertising sales executive if he would like. Surgeon / Physician: Dorian Carter - Medications / Follow-up
--- NOTE | 2016-07-06 14:54 | Event Note ---
Patient underwent cardiac catheterization via right radial approach. Medical management will ensue. Please see cardiac catheterization report. After 2 hours, patient is stable for discharge home post cath. Patient will follow up with his administrator social welfare at the [facility]
[2016-07-06] MEDS: ENOXAPARIN 40 MG/0.4 ML SYRINGE SUBCUT SCH (16:18)
[2016-07-06] MEDS: DIVALPROEX 500 MG TABLET PO SCH (20:29)
[2016-07-07 05:18] LABS: Basophils # 0.1 10*3/uL (0.0-0.2); Basophils % 0.9 % (0.0-0.8); Eosinophils # 0.1 10*3/uL (0.0-0.87); Eosinophils % 1.7 % (0.00-10.9); Hematocrit 38.9 VOL% (42.0-52.0); Hemoglobin 12.9 GM/DL (14.0-18.0); Immature Granulocytes % 0.2 %; Immature Granulocytes Absolute 0.01 #; Lymphocytes # 2.7 10*3/uL (1.4-4.0); Lymphocytes % 46.5 % (21.2-54.2); Mean Corpuscular HGB Conc 33.2 GM/DL (32-36); Mean Corpuscular Hemoglobin 29 PG (27-34); Mean Corpuscular Volume 88.4 FL (87-102); Mean Platelet Volume 8.9 FL (9.6-12.0); Monocytes # 0.6 10*3/uL (0.11-0.8); Monocytes % 9.9 % (1.7-12.7); Neutrophils # 2.4 10*3/uL (1.4-7.4); Neutrophils % 40.8 % (38.7-73.9); Platelet Count 244 T/CUMM (130-400); Red Cell Distribution Width 14.7 % (9.3-17.3); White Blood Count 5.9 T/CUMM (4-12)
[2016-07-07 05:41] LABS: Calcium 8.8 MG/DL (8.5-10.1); Magnesium 2.2 MG/DL (1.8-2.4); Potassium 3.5 MMOL/L (3.5-5.1)
[2016-07-07 05:57] LABS: Risk Ratio 3.47; VLDL CHOLESTEROL 28.6 MG/DL
[2016-07-07] MEDS: SODIUM CHLORIDE 0.45% 1,000 ML IV SCH ×2 (07:35→12:04)
[2016-07-07] MEDS: INSULIN LISPRO 100 UNIT/ML SUBCUT SCH ×2 (08:38→12:37)
[2016-07-07] MEDS: GABAPENTIN 300 MG CAPSULE PO SCH ×2 (09:40→12:51)
[2016-07-07] MEDS: PANTOPRAZOLE 40 MG TABLET PO SCH ×2 (09:40→12:04)
[2016-07-07] MEDS: LEVOTHYROXINE 100 MCG TABLET PO SCH (09:40)
[2016-07-07] MEDS: amLODIPine 10 MG TABLET PO SCH (09:40)
[2016-07-07] MEDS: ALLOPURINOL 100 MG TABLET PO SCH (09:40)
[2016-07-07] MEDS: CLOPIDOGREL 75 MG TABLET PO SCH (09:40)
[2016-07-07] MEDS: ASPIRIN EC 81 MG TABLET PO SCH (09:40)
[2016-07-07] MEDS: LOSARTAN 50 MG TABLET PO SCH (09:40)
[2016-07-07] MEDS: FUROSEMIDE 20 MG TABLET PO SCH (09:40)
[2016-07-07] MEDS: ISOSORBIDE MONONITRATE 30 MG TABLET PO SCH (09:40)
--- NOTE | 2016-07-07 12:17 | Cardiology Progress Note ---
Assessment and Plan (1) Symptomatic bradycardia Status: Acute Assessment and plan: This resolved with stopping his carvedilol. I think we can discharge him home. I would like to see him back in the clinic in one to 2 weeks. I will be happy to see him sooner if needed. There was a question about getting a Holter monitor, but I think we can hold off on that unless it becomes clinically indicated after stopping the carvedilol. Current Visit: Yes (2) Hypertension Problem details: Continue current treatment plan. Status: Chronic Assessment and plan: I want to stop his amlodipine and I am starting nifedipine extended release at bedtime. I find at the nifedipine is much more effective at controlling blood pressure when given at bedtime. Current Visit: Yes (3) Coronary artery disease Problem details: Continue home meds. Status: Chronic Assessment and plan: He has chronic severe but stable coronary artery disease which we are managing medically at this time. Current Visit: Yes Qualifiers: Coronary Disease-Associated Artery/Lesion type: nav[place] artery (4) Diabetes Problem details: Continue current treatment plan Status: Chronic Current Visit: Yes (5) Dyslipidemia Problem details: Continue current treatment plan. Status: Chronic Current Visit: Yes (6) Obesity (BMI 35.0-39.9 without comorbidity) Problem details: Educated pt on healthy diet, exercist option in order to loose weight. Status: Chronic Current Visit: Yes (7) Sleep apnea Status: Chronic Current Visit: Yes Cardiology - PN: Subj Interval history: The patient is feeling very well today. He has had no further symptom at bradycardia or lightheadedness. He has not had any anginal symptoms. He did not have any complications from his cardiac catheterization from the right radial artery. We had a long discussion today about managing his heart disease and his blood pressure. I'm going to make some minor changes in his antihypertensives. I think we can discharge him home today and I will follow- up with him in a week or so in the clinic. Current Medications Acetaminophen (Tylenol Tab) 650 mg PO Q4H PRN PRN Reason: Fever, Headache, Mild Pain Acetaminophen/Diphenhydramine HCl (Tylenol Pm) 2 tablet PO BEDTIME PRN PRN Reason: Sleep [facility] [place] Admin: 07/07/16 09:40 Dose: 100 mg Aspirin () 81 mg PO QAM [facility] Last Admin: 07/07/16 09:40 Dose: 81 mg Clopidogrel Bisulfate (Plavix) [facility] [place] Admin: 07/07/16 09:40 Dose: 75 mg Dextrose/Water (D50) 25 gm IV PRN PRN PRN Reason: Hypoglycemia with IV access Divalproex Sodium (Depakote) 2,000 mg PO BEDTIME [facility] Last Admin: 07/06/16 20:29 Dose: 2,000 mg Duloxetine HCl (Cymbalta) 90 mg PO 1200 [facility] Last Admin: 07/06/16 12:07 Dose: 90 mg Enoxaparin Sodium (Lovenox) 40 mg SUBCUT Q24H [facility] Last Admin: 07/06/16 16:18 Dose: Not Given Furosemide (Lasix Tab) 20 mg PO [facility] Last Admin: 07/07/16 09:40 Dose: 20 mg Gabapentin (Neurontin Cap/Tab) 600 mg PO 1200 [facility] Last Admin: 07/06/16 12:07 Dose: 600 mg Gabapentin (Neurontin Cap/Tab) 600 mg PO [facility] Last Admin: 07/07/16 09:40 Dose: 600 mg Gabapentin (Neurontin Cap/Tab) 600 mg PO BEDTIME [facility] Last Admin: 07/06/16 20:30 Dose: 600 mg Glucagon () 1 mg IM PRN PRN PRN Reason: Hypoglycemia w/o IV access Sodium Chloride (1/2ns) 1,000 mls @ 125 mls/hr IV .Q8H [facility] Last Admin: 07/07/16 12:04 Dose: Not Given Potassium Chloride 10 meq/ (Premix) 100 mls @ 100 mls/hr IV Q1H PRN PRN Reason: Potassium less than 3.5 Magnesium Sulfate 2 gm/ Premix 50 mls @ 25 mls/hr IV ONCE PRN PRN Reason: Magnesium less than 1.8 Insulin Human Lispro (Humalog) 0 unit SUBCUT ACHS [facility] PRN Reason: Protocol Last Admin: 07/07/16 08:38 Dose: Not Given Isosorbide Mononitrate (Imdur) 30 mg PO [facility] Last Admin: 07/07/16 09:40 Dose: 30 mg Levothyroxine Sodium (Synthroid Tab) 100 mcg PO [facility] Last Admin: 07/07/16 09:40 Dose: 100 mcg Losartan Potassium (Cozaar) 100 mg PO DAILY [facility] Last Admin: 07/07/16 09:40 Dose: 100 mg Nifedipine (Procardia Xl) 30 mg PO BEDTIME [facility] Nitroglycerin (Nitrostat) 0.4 mg SL Q5M PRN PRN Reason: Chest Pain Ondansetron HCl (Zofran Inj) 4 mg IV Q4H PRN PRN Reason: Nausea Last Admin: 07/04/16 16:38 Dose: 4 mg Pantoprazole Sodium (Protonix Tab) 40 mg PO DAILY [facility] Last Admin: 07/07/16 09:40 Dose: 40 mg Pantoprazole Sodium (Protonix Tab) 40 mg PO QAM [facility] Last Admin: 07/07/16 12:04 Dose: Not Given Exam (Progress Note) - Constitutional Vitals: Period Temp Pulse Resp BP Sys/Torres Pulse Ox Last 24 Hr 96.0 F-97.2 F 47-64 16-20 132-175/76-93 93-99 Exam: General: Appears well developed, well nourished, no apparent distress HEENT: Normocephalic, atraumatic Neck: Supple Neck, Midline Trachea Cardiac: Reg Rate and Rhythm, out of 6 systolic Murmur, no gallop, no rub Lungs: Clear to auscultation, No Wheeze, Rales, Rhonchi Neuro: Cranial Nerve 2-12 Intact, Motor Function Grossly Intact Abdomen: Soft, Active Bowel Sounds, No Masses, No Pulsations/Bruits Skin: Normal color, no rash Extremities: No Clubbing, No Cyanosis, No Edema, Normal Upper Extr. Pulses, no, dictation from right radial cardiac cath access site Musculoskeletal: No acute abnormality noted Psychiatric: The patient does not appear to be anxious or depressed Result/EKG - Labs CBC & BMP: 07/07/16 04:53 07/07/16 04:53 Lab Results: I have reviewed the past 24 hour labs Labs: Laboratory Results - last 24 hr 07/06/16 07/06/16 07/07/16 15:39 19:52 04:53 WBC 5.9 RBC 4.40 Hgb 12.9 L Hct 38.9 L MCV 88.4 MCH 29 MCHC 33.2 RDW 14.7 Plt Count 244 MPV 8.9 L Neut % (Auto) 40.8 Lymph % (Auto) 46.5 Stark % (Auto) 9.9 Eos % (Auto) 1.7 Baso % (Auto) 0.9 H Neut # (Auto) 2.4 Lymph # (Auto) 2.7 Stark # (Auto) 0.6 Eos # (Auto) 0.1 Baso # (Auto) 0.1 Immature Gran % 0.2 Nucleated RBC % 0.0 Immature Gran # 0.01 Nucleated RBCs # 0.00 Sodium Potassium Chloride Carbon Dioxide Anion Gap BUN Creatinine GFR Calculation BUN/Creatinine Ratio Glucose POC Glucose 115 H 170 H Calculated Osmolality Calcium Magnesium Triglycerides Cholesterol LDL Cholesterol VLDL Cholesterol HDL Cholesterol Heart Disease Risk Ratio 07/07/16 07/07/16 04:53 04:53 WBC RBC Hgb Hct MCV MCH MCHC RDW Plt Count MPV Neut % (Auto) Lymph % (Auto) Stark % (Auto) Eos % (Auto) Baso % (Auto) Neut # (Auto) Lymph # (Auto) Stark # (Auto) Eos # (Auto) Baso # (Auto) Immature Gran % Nucleated RBC % Immature Gran # Nucleated RBCs # Sodium 143 Potassium 3.5 Chloride 107 Carbon Dioxide 30 Anion Gap 9.5 BUN 14 Creatinine 0.90 GFR Calculation 119 BUN/Creatinine Ratio 15.00 Glucose 126 H POC Glucose Calculated Osmolality 287.0 Calcium 8.8 Magnesium 2.2 Triglycerides 143 Cholesterol 201 H LDL Cholesterol 118.0 VLDL Cholesterol 28.6 HDL Cholesterol 58 Heart Disease Risk Ratio 3.47 - EKG EKG results: interpreted by me
[2016-07-07 12:48] VITALS: BP 174/81
[2016-07-07] MEDS: DULoxetine 30 MG CAPSULE PO SCH (12:51)
--- NOTE | 2016-07-07 13:36 | Discharge Summary ---
Hospital Course - Hospital Course Hospital Course: Cardiology consulted during pt's hospitalization. Cardiac cath on 07/06/16. HR around 60bpm while holding his betablocker. Pt deny further dizziness episode. Stable to be dc home per Cardiology and DC Coreg and Norvasc, add Nifedipine at night time to control BP per Cardiology. F/u with Cardiology clinic in 1-2 weeks. Continue other home meds. Per HPI on 07/02/16: Chief complaint: weakness History of present illness: Mr. Petty is a 65 year old white male that presented to the ED with c/o weakness and dizziness. Pt stated that he has fallen twice in the past 2 days ( and Saturday, respectively) and that his recorded a heart rate in the 40s. Pt admits to taking coreg twice daily for his blood pressure. This dosage has been increased from 6.25 to 12.5 recently. Pt. also states he has seen edema in both hands and feet. Pt. does admit to chest tightness, but denies radiation of pain. Pt denies fever, chills, shortness of breath. Pt reports being nauseated but not vomiting. Pain is noted in RUQ. Pt. is a and has been seen by the [facility] physicians. Pt. has a history of htn, [place] with stents, CVA, dm, dyslipidemia, and gout. - Time spent with patient Time with patient DS: Greater than 30 minutes (Time spent: 45 minutes.) Diagnosis - Discharge Diagnosis (1) Chest pain Status: Resolved (2) Symptomatic bradycardia Status: Resolved (3) Coronary artery disease Status: Chronic (4) Hypertension Status: Chronic (5) Dyslipidemia Status: Chronic (6) Obesity (BMI 35.0-39.9 without comorbidity) Status: Chronic (7) Sleep apnea Status: Chronic (8) Diabetes Status: Chronic Discharge Plan - Discharge Data Condition at Discharge: Stable Discharge Diet: diabetic diet, heart healthy - Discharge Medications New Allopurinol [Zyloprim] 100 mg PO QAM tablet Aspirin EC Tab 81 mg PO QAM tablet Clopidogrel [Plavix] 75 mg PO QAM tablet Divalproex [Depakote] 2,000 mg PO BEDTIME tablet Furosemide Tab [Lasix Tab] 20 mg PO QAM tablet Gabapentin Cap/Tab [Neurontin Cap/Tab] 600 mg PO BEDTIME capsule Gabapentin Cap/Tab [Neurontin Cap/Tab] 600 mg PO 1200 capsule Gabapentin Cap/Tab [Neurontin Cap/Tab] 600 mg PO QAM capsule Levothyroxine Tab [Synthroid Tab] 100 mcg PO QAM tablet Losartan [Cozaar] 100 mg PO DAILY tablet Nitroglycerin Sl Tab [Nitrostat] 0.4 mg SL Q5M PRN #0 tablet PRN Reason: Chest Pain ACETAMIN/diphenhydrAMIN 500-25 [Tylenol PM] 2 tablet PO BEDTIME PRN #0 tablet PRN Reason: Sleep DULoxetine [Cymbalta] 90 mg PO 1200 capsule Isosorbide Mononitrate [Imdur] 30 mg PO QAM tablet NIFEdipine XL TAB [Procardia Xl] 30 mg PO BEDTIME #30 tablet Continue Multivitamin [Multivitamins] 1 each PO 1200 metFORMIN [Glucophage] 500 mg PO BID W/MEALS Rosuvastatin Calcium [Crestor] 20 mg PO QPM Cyanocobalamin (Vitamin B-12) [Vitamin B-12] 1,000 mcg PO 1200 hydrALAZINE TAB [Apresoline Tab] 25 mg PO TID glipiZIDE [Glipizide] 5.5 mg PO BID Omeprazole [Prilosec] 40 mg PO QAM Discontinued Nitroglycerin Sl Tab [Nitrostat] 0.4 mg SL Q5M PRN PRN Reason: Chest Pain Gabapentin Cap/Tab [Neurontin Cap/Tab] 600 mg PO QAM Gabapentin 600 mg PO QPM Isosorbide Mononitrate [Imdur] 30 mg PO QAM ACETAMIN/diphenhydrAMIN 500-25 [Tylenol PM] 2 tablet PO BEDTIME PRN PRN Reason: Sleep Divalproex [Depakote] 2,000 mg PO QPM DULoxetine [Cymbalta] 90 mg PO 1200 Clopidogrel [Plavix] 75 mg PO QAM Levothyroxine Sodium 100 mcg PO QAM Furosemide Tab [Lasix Tab] 20 mg PO QAM Aspirin EC Tab 81 mg PO QAM Allopurinol 100 mg PO QAM Carvedilol 12.5 mg PO BID amLODIPine [Norvasc] 10 mg PO QAM Gabapentin 600 mg PO 1200 - Follow Up or Referral - Forms/Instructions Additional Discharge Instructions: Stable to be discharged to home per Cardiology. Discontinue Coreg and Norvasc, but add Nifedipine at night time to control BP per Cardiology. F/u with Cardiology in 1-2 weeks. Continue other home meds. Exam - Constitutional Vitals: Period Temp Pulse Resp BP Sys/Torres Pulse Ox Last 24 Hr 96.0 F-97.5 F 47-64 16-20 132-175/76-93 93-99 Exam: GENERAL: NAD, AAOx3. HEENT: Pupils equally round and reactive to light, conjunctivae clear. TMs francois and translucent. Normal lips, teeth and gums. NECK: Supple without mass. CHEST: Normal shape, good air movement, no retractions. CV: Bradycardia, no gallops, 2+ peripheral pulses LUNGS: Clear to auscultation; no rales, rhonchi, or wheezes. ABDOMEN: Soft, nontender, and no hepatosplenomegaly. SKIN: No rash or edema. LYMPH: No anterior or posterior cervical, or supraclavicular lymphadenopathy. NEURO: No gross motor deficits noted. Discharge Results Procedures and tests throughout hospitalization: Pending Orders 07/06/16 09:38 CL heart Routine Labs on day of discharge: Labs from last 24 hours 07/07/16 07/07/16 07/07/16 04:53 04:53 04:53 WBC 5.9 RBC 4.40 Hgb 12.9 L Hct 38.9 L MCV 88.4 MCH 29 MCHC 33.2 RDW 14.7 Plt Count 244 MPV 8.9 L Neut % (Auto) 40.8 Lymph % (Auto) 46.5 [place] % (Auto) 9.9 Eos % (Auto) 1.7 Baso % (Auto) 0.9 H Neut # (Auto) 2.4 Lymph # (Auto) 2.7 [place] # (Auto) 0.6 Eos # (Auto) 0.1 Baso # (Auto) 0.1 Immature Gran % 0.2 Nucleated RBC % 0.0 Immature Gran # 0.01 Nucleated RBCs # 0.00 Sodium 143 Potassium 3.5 Chloride 107 Carbon Dioxide 30 Anion Gap 9.5 BUN 14 Creatinine 0.90 GFR Calculation 119 BUN/Creatinine Ratio 15.00 Glucose 126 H POC Glucose Calculated Osmolality 287.0 Calcium 8.8 Magnesium 2.2 Triglycerides 143 Cholesterol 201 H LDL Cholesterol 118.0 VLDL Cholesterol 28.6 HDL Cholesterol 58 Heart Disease Risk Ratio 3.47 07/06/16 07/06/16 19:52 15:39 WBC RBC Hgb Hct MCV MCH MCHC RDW Plt Count MPV Neut % (Auto) Lymph % (Auto) [place] % (Auto) Eos % (Auto) Baso % (Auto) Neut # (Auto) Lymph # (Auto) [place] # (Auto) Eos # (Auto) Baso # (Auto) Immature Gran % Nucleated RBC % Immature Gran # Nucleated RBCs # Sodium Potassium Chloride Carbon Dioxide Anion Gap BUN Creatinine GFR Calculation BUN/Creatinine Ratio Glucose POC Glucose 170 H 115 H Calculated Osmolality Calcium Magnesium Triglycerides Cholesterol LDL Cholesterol VLDL Cholesterol HDL Cholesterol Heart Disease Risk Ratio DS: Provider Date of admission: 07/02/16 14:35 Primary care physician: . No PCP Attending physician on admission: Apolonia Gonzalez MD Consults: 07/02/16 16:25 Consult to Pharmacy [CONS] Routine Reason for Pharmacy Consult: Adjust Meds Renal Funct Discharging clinician: Bradley Mora MD Expected date of discharge: 07/07/16
== END 2016-07-07 16:20 | disposition home or self-care (01) | DRG 287 ==
LOC: N.ED 12:49 → N.EDINP 14:35 → SUATTDRO 14:35 → N.TELEN 16:32
PROVIDERS: ADMIT Internal Medicine; ATTEND Internal Medicine
PROC: CLCCHCL (ICD-10-PCS; 2016-07-06 15:15)

== ENCOUNTER 2017-06-08 21:27 | Inpatient (IN) ==
[2017-06-08] MEDS ORDERED: ASPIRIN 325 MG TABLET PO STA (23:11)
[2017-06-08] MEDS ORDERED: NITROGLYCERIN 2% OINT 1 INCH/GM PACK TOP STA (23:11)
[2017-06-08] MEDS ORDERED: NITROGLYCERIN 2% OINT 1 INCH/GM PACK TOP ONE (23:19)
[2017-06-08] MEDS ORDERED: ASPIRIN 325 MG TABLET ONE (23:19)
[2017-06-09] MEDS ORDERED: MAGNESIUM SULF RIDER 4 GM in PREMIX 1 EACH IV PRN (00:52)
[2017-06-09] MEDS ORDERED: MAGNESIUM SULF RIDER 2 GM in PREMIX 1 EACH IV PRN (00:52)
[2017-06-09 01:08] LABS: Basophils % 0.5 % (0.0-0.8); Eosinophils # 0.1 10*3/uL (0.0-0.87); Eosinophils % 1.8 % (0.00-10.9); Hematocrit 35.5 VOL% (42.0-52.0); Hemoglobin 11.9 GM/DL (14.0-18.0); Immature Granulocytes % 0.2 %; Immature Granulocytes Absolute 0.01 #; Lymphocytes % 53.8 % (21.2-54.2); Mean Corpuscular HGB Conc 33.5 GM/DL (32-36); Mean Corpuscular Hemoglobin 31 PG (27-34); Mean Corpuscular Volume 91.3 FL (87-102); Mean Platelet Volume 9.4 FL (9.6-12.0); Monocytes # 0.5 10*3/uL (0.11-0.8); Neutrophils % 35.7 % (38.7-73.9); Platelet Count 236 T/CUMM (130-400); Red Blood Count 3.89 MC/CUMM (3.8-5.5); Red Cell Distribution Width 13.9 % (9.3-17.3); White Blood Count 5.6 T/CUMM (4-12)
[2017-06-09 01:19] LABS: Alanine Aminotransferase 19 U/L (16-61); Albumin 3.4 G/DL (3.4-5.0); Alkaline Phosphatase 58 U/L (45-117); Aspartate Amino Transferase 13 U/L (0-37); Bilirubin,Total < 0.39 MG/DL (0.2-1.0); Blood Urea Nitrogen 12 MG/DL (7-18); Calcium 8.6 MG/DL (8.5-10.1); Glucose 122 MG/DL (74-106); Potassium 3.6 MMOL/L (3.5-5.1); Sodium 143 MMOL/L (136-145); Total Protein 6.7 G/DL (6.4-8.3)
[2017-06-09 01:29] LABS: Band Neutrophils 6 % (0-10); Lymphocytes 47 % (20-55); Segmented Neutrophils 42 % (50-85); Total Cells Counted 100
[2017-06-09 01:30] LABS: Platelet Estimate Normal
[2017-06-09] MEDS ORDERED: NITROGLYCERIN SL 0.4 MG TABLET SL PRN (11:18)
[2017-06-09] MEDS ORDERED: ACETAMINOPHEN/diphenhydrAMINE 500-25 MG TABLET PO PRN (11:18)
[2017-06-09] MEDS ORDERED: TYLENOL ARTHRITIS PO PRN (11:18)
[2017-06-09] MEDS ORDERED: KETOTIFEN FUMARATE BOTH EYES SCH (11:30)
[2017-06-09] MEDS: PANTOPRAZOLE 40 MG TABLET PO SCH (13:32)
[2017-06-09] MEDS: CYANOCOBALAMIN 500 MCG TABLET PO SCH (13:32)
[2017-06-09] MEDS: DULoxetine 30 MG CAPSULE PO SCH ×2 (13:32→21:45)
[2017-06-09] MEDS: ASPIRIN EC 81 MG TABLET PO SCH (13:33)
[2017-06-09] MEDS: CLOPIDOGREL 75 MG TABLET PO SCH (13:33)
[2017-06-09] MEDS: glipiZIDE 5 MG TABLET PO SCH ×2 (13:33→21:43)
[2017-06-09] MEDS: GABAPENTIN 300 MG CAPSULE PO SCH ×2 (14:32→21:45)
[2017-06-09] MEDS: SODIUM CHLORIDE 0.9% 1,000 ML IV SCH (16:08)
[2017-06-09] MEDS: NITROGLYCERIN 2% OINT 1 INCH/GM PACK TOP SCH ×3 (16:08→23:43)
[2017-06-09] MEDS: ROSUVASTATIN 20 MG TABLET PO SCH (21:44)
[2017-06-09] MEDS: DIVALPROEX 500 MG TABLET PO SCH (21:44)
[2017-06-09] MEDS: traZODone 50 MG TABLET PO SCH (21:45)
[2017-06-10] MEDS: SODIUM CHLORIDE 0.9% 1,000 ML IV SCH ×3 (05:47→23:29)
[2017-06-10] MEDS: NITROGLYCERIN 2% OINT 1 INCH/GM PACK TOP SCH ×2 (05:48→12:34)
[2017-06-10] MEDS ORDERED: POTASSIUM CHLORIDE RIDER 10 MEQ in PREMIX 1 EACH IV PRN (08:43)
[2017-06-10] MEDS ORDERED: MAGNESIUM SULF RIDER 2 GM in PREMIX 1 EACH IV PRN (08:43)
[2017-06-10] MEDS ORDERED: ISOSORBIDE MONONITRATE 30 MG TABLET PO SCH (09:00)
[2017-06-10 09:12] LABS: Basophils % 0.6 % (0.0-0.8); Eosinophils # 0.1 10*3/uL (0.0-0.87); Eosinophils % 2.1 % (0.00-10.9); Hematocrit 41.7 VOL% (42.0-52.0); Immature Granulocytes % 0.3 %; Immature Granulocytes Absolute 0.02 #; Lymphocytes # 2.7 10*3/uL (1.4-4.0); Lymphocytes % 43.6 % (21.2-54.2); Mean Corpuscular HGB Conc 34.1 GM/DL (32-36); Mean Corpuscular Hemoglobin 31 PG (27-34); Mean Corpuscular Volume 89.7 FL (87-102); Monocytes # 0.4 10*3/uL (0.11-0.8); Neutrophils % 47.4 % (38.7-73.9); Platelet Count 263 T/CUMM (130-400); Red Blood Count 4.65 MC/CUMM (3.8-5.5); Red Cell Distribution Width 14.1 % (9.3-17.3); White Blood Count 6.3 T/CUMM (4-12)
[2017-06-10 09:25] LABS: Hemoglobin 14.2 GM/DL (14.0-18.0)
[2017-06-10 09:26] LABS: INR 0.9; PT Patient Result 9.7 SECS; Partial Thromboplastin Time 22.9 SECS (0-40)
[2017-06-10 09:27] LABS: Calcium 8.3 MG/DL (8.5-10.1); Osmolality,Calculated 293.4 MOS/KG (273-304); Potassium 3.7 MMOL/L (3.5-5.1)
[2017-06-10] MEDS ORDERED: diphenhydrAMINE CAP 25 MG CAPSULE ONE (10:12)
[2017-06-10] MEDS ORDERED: DIAZEPAM 5 MG TABLET ONE (10:12)
[2017-06-10] MEDS: ASPIRIN EC 81 MG TABLET PO SCH (10:15)
[2017-06-10] MEDS: CLOPIDOGREL 75 MG TABLET PO SCH (10:15)
[2017-06-10] MEDS: LOSARTAN 50 MG TABLET PO SCH (10:15)
[2017-06-10] MEDS: PANTOPRAZOLE 40 MG TABLET PO SCH ×2 (10:15→21:34)
[2017-06-10] MEDS ORDERED: LIDOCAINE 1% 20 ML VIAL ONE (10:17)
[2017-06-10] MEDS ORDERED: diphenhydrAMINE CAP 25 MG CAPSULE PO ONE ×2 (10:23→11:30)
[2017-06-10] MEDS ORDERED: DIAZEPAM 5 MG TABLET PO ONE ×2 (10:23→11:30)
[2017-06-10] MEDS ORDERED: MIDAZOLAM 2 MG/2 ML VIAL ONE (10:37)
[2017-06-10] MEDS ORDERED: fentaNYL 100 MCG/2 ML VIAL ONE (10:37)
[2017-06-10] MEDS ORDERED: hydrALAZINE 20 MG/1 ML VIAL ONE (11:07)
[2017-06-10] MEDS: GABAPENTIN 300 MG CAPSULE PO SCH ×3 (12:30→21:34)
[2017-06-10] MEDS: MULTIVITAMIN (CENTRUM) TABLET PO SCH (12:30)
[2017-06-10] MEDS: DULoxetine 30 MG CAPSULE PO SCH ×2 (12:31→21:34)
[2017-06-10] MEDS: glipiZIDE 5 MG TABLET PO SCH ×2 (12:31→21:34)
[2017-06-10] MEDS: FUROSEMIDE 20 MG TABLET PO SCH (12:31)
[2017-06-10] MEDS: ALLOPURINOL 100 MG TABLET PO SCH (12:32)
[2017-06-10] MEDS ORDERED: hydrALAZINE 20 MG/1 ML VIAL IV PRN (13:14)
[2017-06-10] MEDS: INSULIN REGULAR 100 UNIT/ML SUBCUT SCH ×3 (13:20→21:34)
[2017-06-10] MEDS: CYANOCOBALAMIN 500 MCG TABLET PO SCH (13:29)
[2017-06-10] MEDS: DIVALPROEX 500 MG TABLET PO SCH (21:33)
[2017-06-10] MEDS: ROSUVASTATIN 20 MG TABLET PO SCH (21:34)
[2017-06-10] MEDS: traZODone 50 MG TABLET PO SCH (21:34)
[2017-06-11 06:28] LABS: Basophils % 0.6 % (0.0-0.8); Eosinophils # 0.1 10*3/uL (0.0-0.87); Eosinophils % 1.3 % (0.00-10.9); Hematocrit 38.4 VOL% (42.0-52.0); Immature Granulocytes % 0.4 %; Immature Granulocytes Absolute 0.03 #; Lymphocytes # 2.8 10*3/uL (1.4-4.0); Lymphocytes % 40.9 % (21.2-54.2); Mean Corpuscular HGB Conc 33.9 GM/DL (32-36); Mean Corpuscular Hemoglobin 31 PG (27-34); Mean Corpuscular Volume 90.6 FL (87-102); Mean Platelet Volume 9.1 FL (9.6-12.0); Monocytes # 0.5 10*3/uL (0.11-0.8); Monocytes % 6.7 % (1.7-12.7); Neutrophils # 3.4 10*3/uL (1.4-7.4); Neutrophils % 50.1 % (38.7-73.9); Platelet Count 231 T/CUMM (130-400); Red Blood Count 4.24 MC/CUMM (3.8-5.5); Red Cell Distribution Width 14.3 % (9.3-17.3); White Blood Count 6.7 T/CUMM (4-12)
[2017-06-11 07:00] LABS: Calcium 8.6 MG/DL (8.5-10.1); Osmolality,Calculated 289.7 MOS/KG (273-304); Potassium 3.8 MMOL/L (3.5-5.1)
[2017-06-11 08:15] VITALS: BP 154/75
[2017-06-11] MEDS: INSULIN REGULAR 100 UNIT/ML SUBCUT SCH (08:39)
[2017-06-11] MEDS ORDERED: ISOSORBIDE MONONITRATE 60 MG TABLET PO SCH (09:00)
[2017-06-11] MEDS: SODIUM CHLORIDE 0.9% 1,000 ML IV SCH (09:08)
[2017-06-11] MEDS: PANTOPRAZOLE 40 MG TABLET PO SCH (09:09)
[2017-06-11] MEDS: FUROSEMIDE 20 MG TABLET PO SCH (09:09)
[2017-06-11] MEDS: CLOPIDOGREL 75 MG TABLET PO SCH (09:09)
[2017-06-11] MEDS: GABAPENTIN 300 MG CAPSULE PO SCH (09:09)
[2017-06-11] MEDS: ALLOPURINOL 100 MG TABLET PO SCH (09:09)
[2017-06-11] MEDS: DULoxetine 30 MG CAPSULE PO SCH (09:09)
[2017-06-11] MEDS: glipiZIDE 5 MG TABLET PO SCH (09:10)
[2017-06-11] MEDS: MULTIVITAMIN (CENTRUM) TABLET PO SCH (09:10)
[2017-06-11] MEDS: LOSARTAN 50 MG TABLET PO SCH (09:10)
[2017-06-11] MEDS: ASPIRIN EC 81 MG TABLET PO SCH (09:10)
== END 2017-06-11 11:10 | disposition home or self-care (01) | DRG 287 ==
LOC: N.ED 21:27 → N.EDINP 06-09 00:52 → N.TELES 06-09 02:11
PROVIDERS: ADMIT Internal Medicine Cardiovascular Disease; ATTEND Internal Medicine Cardiovascular Disease
PROC: CLCCHCL (ICD-10-PCS; 2017-06-10 10:45)

== ENCOUNTER 2018-03-04 18:51 | Inpatient (IN) ==
[2018-03-04] MEDS ORDERED: PANTOPRAZOLE 40 MG VIAL IV STA (19:29)
[2018-03-04] MEDS ORDERED: ONDANSETRON 4 MG/2 ML VIAL IV STA (19:29)
[2018-03-04] MEDS ORDERED: SODIUM CHLORIDE 0.9% 500 ML IV STA (19:29)
[2018-03-04] MEDS ORDERED: HYDROmorphone 2 MG/1 ML VIAL IV STA (19:29)
[2018-03-04 19:57] LABS: Basophils % 0.3 % (0.0-0.8); Eosinophils % 0.2 % (0.00-10.9); Hematocrit 38.4 VOL% (42.0-52.0); Hemoglobin 12.8 GM/DL (14.0-18.0); Immature Granulocytes % 0.6 %; Immature Granulocytes Absolute 0.05 #; Lymphocytes # 0.9 10*3/uL (1.4-4.0); Mean Corpuscular HGB Conc 33.3 GM/DL (32-36); Mean Corpuscular Hemoglobin 31 PG (27-34); Mean Corpuscular Volume 92.3 FL (87-102); Monocytes # 0.8 10*3/uL (0.11-0.8); Monocytes % 8.4 % (1.7-12.7); Neutrophils # 7.3 10*3/uL (1.4-7.4); Neutrophils % 80.5 % (38.7-73.9); Platelet Count 223 T/CUMM (130-400); Red Blood Count 4.16 MC/CUMM (3.8-5.5); Red Cell Distribution Width 13.6 % (9.3-17.3)
[2018-03-04 20:06] LABS: INR 0.9; PT Patient Result 10.1 SECS; Partial Thromboplastin Time 24.5 SECS (0-40)
[2018-03-04 20:14] LABS: Albumin 3.5 G/DL (3.4-5.0); Bilirubin,Total 0.6 MG/DL (0.2-1.0); Calcium 8.5 MG/DL (8.5-10.1); Osmolality,Calculated 282.3 MOS/KG (273-304); Potassium 3.5 MMOL/L (3.5-5.1); Total Protein 6.9 G/DL (6.4-8.3)
[2018-03-04 21:00] LABS: Apearance,Urine Slightly Hazy (Clear); Bilirubin,Urine Negative (Negative); Blood, Urine Negative (Negative); Glucose,Urine (UA) Negative (Negative); Ketones,Urine 5 mg/dL (Negative); Mucus,Urine Occasional /LPF (Occasional); Nitrite,Urine Negative (Negative); Protein,Urine >=500 MG/DL; RBC,Urine 10 /HPF (0-4); Sperm,Urine Moderate /HPF (Negative); Urine Color Amber (Yellow); Urine Specific Gravity 1.026 (1.001-1.035); WBC,Urine 1 /HPF (0-6)
[2018-03-04 21:25] LABS: Lactic Acid 1.7 MMOL/L (0.4-2.0)
[2018-03-04] MEDS ORDERED: cefTRIAXone 1,000 MG in SODIUM CHLORIDE 0.9% 100 ML IV STA (21:34)
[2018-03-04] MEDS ORDERED: cefTRIAXone 1,000 MG in SYRINGE 1 EACH IV STA (21:57)
[2018-03-04] MEDS ORDERED: DOCUSATE SODIUM 100 MG CAPSULE PO PRN (22:47)
[2018-03-04] MEDS ORDERED: DEXTROSE 50% 25 GM/50 ML VIAL IV PRN (22:52)
[2018-03-04] MEDS ORDERED: GLUCAGON 1 MG VIAL IM PRN (22:52)
[2018-03-04] MEDS ORDERED: hydrALAZINE 20 MG/1 ML VIAL IV PRN (22:53)
[2018-03-05] MEDS: LEVOFLOXACIN INJ 500 MG in PREMIX 1 EACH IV SCH (00:41)
[2018-03-05] MEDS: traZODone 50 MG TABLET PO SCH ×2 (00:41→21:34)
[2018-03-05] MEDS: SODIUM CHLORIDE 0.9% 1,000 ML IV SCH ×3 (00:42→17:57)
[2018-03-05] MEDS: ONDANSETRON 4 MG/2 ML VIAL IV PRN (05:15)
[2018-03-05] MEDS: ACETAMINOPHEN 325 MG TABLET PO PRN ×4 (05:15→17:57)
[2018-03-05 06:19] LABS: Basophils % 0.2 % (0.0-0.8); Hematocrit 40.3 VOL% (42.0-52.0); Immature Granulocytes % 0.6 %; Immature Granulocytes Absolute 0.07 #; Lymphocytes # 1.3 10*3/uL (1.4-4.0); Lymphocytes % 10.6 % (21.2-54.2); Mean Corpuscular HGB Conc 32.3 GM/DL (32-36); Mean Corpuscular Hemoglobin 30 PG (27-34); Mean Corpuscular Volume 93.5 FL (87-102); Mean Platelet Volume 8.9 FL (9.6-12.0); Monocytes # 0.9 10*3/uL (0.11-0.8); Monocytes % 7.6 % (1.7-12.7); Neutrophils # 9.7 10*3/uL (1.4-7.4); Platelet Count 198 T/CUMM (130-400); Red Blood Count 4.31 MC/CUMM (3.8-5.5); Red Cell Distribution Width 13.9 % (9.3-17.3); White Blood Count 11.9 T/CUMM (4-12)
[2018-03-05] MEDS: LEVOTHYROXINE 100 MCG TABLET PO SCH (06:32)
[2018-03-05 06:47] LABS: Albumin 2.8 G/DL (3.4-5.0); Calcium 7.9 MG/DL (8.5-10.1); Osmolality,Calculated 278.5 MOS/KG (273-304); Potassium 3.7 MMOL/L (3.5-5.1); Total Protein 7.2 G/DL (6.4-8.3)
[2018-03-05] MEDS ORDERED: KETOTIFEN FUMARATE BOTH EYES SCH (09:00)
[2018-03-05] MEDS: ASPIRIN EC 81 MG TABLET PO SCH (09:44)
[2018-03-05] MEDS: GABAPENTIN 300 MG CAPSULE PO SCH ×3 (09:44→21:34)
[2018-03-05] MEDS: ALLOPURINOL 100 MG TABLET PO SCH (09:44)
[2018-03-05] MEDS: LOSARTAN 50 MG TABLET PO SCH (09:44)
[2018-03-05] MEDS: DULoxetine 30 MG CAPSULE PO SCH ×2 (09:44→21:34)
[2018-03-05] MEDS: INSULIN LISPRO 100 UNIT/ML SUBCUT SCH ×4 (09:45→21:34)
[2018-03-05] MEDS: ISOSORBIDE MONONITRATE 60 MG TABLET PO SCH (09:45)
[2018-03-05] MEDS: CLOPIDOGREL 75 MG TABLET PO SCH (09:45)
[2018-03-05] MEDS: FUROSEMIDE 20 MG TABLET PO SCH (09:45)
[2018-03-05] MEDS: CYANOCOBALAMIN 500 MCG TABLET PO SCH (12:16)
[2018-03-05] MEDS ORDERED: LACTULOSE 20 GM/30 ML UDCUP PO ONE (15:31)
[2018-03-05] MEDS: DIVALPROEX 500 MG TABLET PO SCH (21:34)
[2018-03-05] MEDS: ROSUVASTATIN 20 MG TABLET PO SCH (21:34)
[2018-03-06] MEDS: ACETAMINOPHEN 325 MG TABLET PO PRN ×4 (00:07→15:01)
[2018-03-06] MEDS: SODIUM CHLORIDE 0.9% 1,000 ML IV SCH ×3 (02:00→21:02)
[2018-03-06] MEDS: LEVOFLOXACIN INJ 500 MG in PREMIX 1 EACH IV SCH (02:30)
[2018-03-06] MEDS: LEVOTHYROXINE 100 MCG TABLET PO SCH (06:37)
[2018-03-06] MEDS: ALLOPURINOL 100 MG TABLET PO SCH (09:31)
[2018-03-06] MEDS: DULoxetine 30 MG CAPSULE PO SCH ×2 (09:31→21:05)
[2018-03-06] MEDS: ISOSORBIDE MONONITRATE 60 MG TABLET PO SCH (09:32)
[2018-03-06] MEDS: CLOPIDOGREL 75 MG TABLET PO SCH (09:32)
[2018-03-06] MEDS: LOSARTAN 50 MG TABLET PO SCH (09:32)
[2018-03-06] MEDS: GABAPENTIN 300 MG CAPSULE PO SCH ×3 (09:32→21:05)
[2018-03-06] MEDS: FUROSEMIDE 20 MG TABLET PO SCH (09:32)
[2018-03-06] MEDS: ASPIRIN EC 81 MG TABLET PO SCH (09:32)
[2018-03-06] MEDS: ENOXAPARIN 40 MG/0.4 ML SYRINGE SUBCUT SCH (09:34)
[2018-03-06] MEDS: INSULIN LISPRO 100 UNIT/ML SUBCUT SCH ×4 (09:35→21:05)
[2018-03-06] MEDS: CYANOCOBALAMIN 500 MCG TABLET PO SCH (15:01)
[2018-03-06] MEDS: ONDANSETRON 4 MG/2 ML VIAL IV PRN (15:01)
[2018-03-06] MEDS: metroNIDAZOLE INJ 500 MG in PREMIX 1 EACH IV SCH ×2 (15:04→21:02)
[2018-03-06] MEDS: DIVALPROEX 500 MG TABLET PO SCH (21:05)
[2018-03-06] MEDS: traZODone 50 MG TABLET PO SCH (21:05)
[2018-03-06] MEDS: ROSUVASTATIN 20 MG TABLET PO SCH (21:05)
[2018-03-07] MEDS: LEVOFLOXACIN INJ 500 MG in PREMIX 1 EACH IV SCH ×2 (01:49→23:50)
[2018-03-07] MEDS: metroNIDAZOLE INJ 500 MG in PREMIX 1 EACH IV SCH ×3 (04:18→20:32)
[2018-03-07 05:22] LABS: Calcium 8.5 MG/DL (8.5-10.1); Osmolality,Calculated 288.8 MOS/KG (273-304); Potassium 3.3 MMOL/L (3.5-5.1)
[2018-03-07 05:28] LABS: Basophils % 0.2 % (0.0-0.8); Eosinophils % 0.3 % (0.00-10.9); Hematocrit 37.4 VOL% (42.0-52.0); Immature Granulocytes % 0.4 %; Immature Granulocytes Absolute 0.05 #; Lymphocytes # 1.6 10*3/uL (1.4-4.0); Mean Corpuscular HGB Conc 32.1 GM/DL (32-36); Mean Corpuscular Hemoglobin 30 PG (27-34); Mean Corpuscular Volume 92.8 FL (87-102); Mean Platelet Volume 9.7 FL (9.6-12.0); Monocytes # 0.9 10*3/uL (0.11-0.8); Neutrophils # 8.9 10*3/uL (1.4-7.4); Neutrophils % 77.1 % (38.7-73.9); Platelet Count 203 T/CUMM (130-400); Red Blood Count 4.03 MC/CUMM (3.8-5.5); Red Cell Distribution Width 13.6 % (9.3-17.3); White Blood Count 11.6 T/CUMM (4-12)
[2018-03-07] MEDS: INSULIN LISPRO 100 UNIT/ML SUBCUT SCH ×4 (08:28→22:46)
[2018-03-07] MEDS: LEVOTHYROXINE 100 MCG TABLET PO SCH ×2 (08:28→12:16)
[2018-03-07] MEDS ORDERED: PROPOFOL 200 MG/20 ML VIAL IV ONE (09:00)
[2018-03-07] MEDS ORDERED: LIDOCAINE 100 MG/5 ML SYRINGE ONE (09:00)
[2018-03-07] MEDS ORDERED: ALBUTEROL/IPRATROPIUM 3 ML NEB RESP TX STA (09:55)
[2018-03-07] MEDS: GABAPENTIN 300 MG CAPSULE PO SCH ×3 (12:15→20:30)
[2018-03-07] MEDS: SODIUM CHLORIDE 0.9% 1,000 ML IV SCH (12:15)
[2018-03-07] MEDS: DULoxetine 30 MG CAPSULE PO SCH ×2 (12:16→20:31)
[2018-03-07] MEDS: LOSARTAN 50 MG TABLET PO SCH (12:16)
[2018-03-07] MEDS: ALLOPURINOL 100 MG TABLET PO SCH (12:16)
[2018-03-07] MEDS: ISOSORBIDE MONONITRATE 60 MG TABLET PO SCH (12:16)
[2018-03-07] MEDS: POTASSIUM CHLORIDE 20 MEQ TABLET PO SCH ×4 (12:17→20:31)
[2018-03-07] MEDS: CYANOCOBALAMIN 500 MCG TABLET PO SCH (12:17)
[2018-03-07] MEDS: FUROSEMIDE 20 MG TABLET PO SCH (12:17)
[2018-03-07] MEDS: ASPIRIN EC 81 MG TABLET PO SCH (13:09)
[2018-03-07] MEDS: CLOPIDOGREL 75 MG TABLET PO SCH (13:09)
[2018-03-07] MEDS: ENOXAPARIN 40 MG/0.4 ML SYRINGE SUBCUT SCH (13:09)
[2018-03-07 13:31] LABS: ABG HCO3 25.9 MMOL/L (20-26); ABG Oxygen Saturation 84.2 % (95-100); ABG PCO2 42.4 MM HG (35-48); ABG PO2 51.1 MM HG (80-95); ABG TCO2 23.9 MMOL/L (23-27)
[2018-03-07] MEDS: SUCRALFATE 1 GM/10 ML UDCUP PO SCH ×2 (15:45→20:30)
[2018-03-07] MEDS: traZODone 50 MG TABLET PO SCH (20:30)
[2018-03-07] MEDS: ROSUVASTATIN 20 MG TABLET PO SCH (20:30)
[2018-03-07] MEDS: PANTOPRAZOLE 40 MG TABLET PO SCH (20:31)
[2018-03-07] MEDS: DIVALPROEX 500 MG TABLET PO SCH (20:31)
[2018-03-07] MEDS: ACETAMINOPHEN 325 MG TABLET PO PRN (23:50)
[2018-03-08] MEDS: SODIUM CHLORIDE 0.9% 1,000 ML IV SCH (05:01)
[2018-03-08] MEDS: metroNIDAZOLE INJ 500 MG in PREMIX 1 EACH IV SCH ×3 (05:29→20:15)
[2018-03-08] MEDS: LEVOTHYROXINE 100 MCG TABLET PO SCH (05:30)
[2018-03-08 06:33] LABS: Calcium 8.7 MG/DL (8.5-10.1); Osmolality,Calculated 284.1 MOS/KG (273-304); Potassium 4.2 MMOL/L (3.5-5.1)
[2018-03-08] MEDS: ENOXAPARIN 40 MG/0.4 ML SYRINGE SUBCUT SCH (08:39)
[2018-03-08] MEDS: DULoxetine 30 MG CAPSULE PO SCH ×2 (08:39→20:15)
[2018-03-08] MEDS: LOSARTAN 50 MG TABLET PO SCH (08:40)
[2018-03-08] MEDS: ASPIRIN EC 81 MG TABLET PO SCH (08:40)
[2018-03-08] MEDS: CLOPIDOGREL 75 MG TABLET PO SCH (08:40)
[2018-03-08] MEDS: GABAPENTIN 300 MG CAPSULE PO SCH (08:40)
[2018-03-08] MEDS: ISOSORBIDE MONONITRATE 60 MG TABLET PO SCH (08:40)
[2018-03-08] MEDS: SUCRALFATE 1 GM/10 ML UDCUP PO SCH ×4 (08:40→20:15)
[2018-03-08] MEDS: ALLOPURINOL 100 MG TABLET PO SCH (08:40)
[2018-03-08] MEDS: FUROSEMIDE 20 MG TABLET PO SCH (08:40)
[2018-03-08] MEDS: INSULIN LISPRO 100 UNIT/ML SUBCUT SCH ×3 (08:43→18:37)
[2018-03-08] MEDS: PANTOPRAZOLE 40 MG TABLET PO SCH ×2 (08:46→20:15)
[2018-03-08 13:22] LABS: Vitamin B12 687 PG/ML (211-911)
[2018-03-08] MEDS: CYANOCOBALAMIN 500 MCG TABLET PO SCH (14:00)
[2018-03-08] MEDS: DIVALPROEX 500 MG TABLET PO SCH (20:15)
[2018-03-08] MEDS: ROSUVASTATIN 20 MG TABLET PO SCH (20:15)
[2018-03-08] MEDS: ACETAMINOPHEN 325 MG TABLET PO PRN (20:18)
[2018-03-09] MEDS: LEVOFLOXACIN INJ 500 MG in PREMIX 1 EACH IV SCH (00:27)
[2018-03-09] MEDS ORDERED: LEVOFLOXACIN 500 MG TABLET PO SCH (00:30)
[2018-03-09] MEDS: INSULIN LISPRO 100 UNIT/ML SUBCUT SCH ×5 (00:51→20:59)
[2018-03-09] MEDS: metroNIDAZOLE INJ 500 MG in PREMIX 1 EACH IV SCH (04:23)
[2018-03-09] MEDS ORDERED: metroNIDAZOLE 500 MG TABLET PO SCH (04:30)
[2018-03-09] MEDS: LEVOTHYROXINE 100 MCG TABLET PO SCH (06:11)
[2018-03-09 06:14] LABS: Basophils % 0.7 % (0.0-0.8); Eosinophils # 0.2 10*3/uL (0.0-0.87); Eosinophils % 2.6 % (0.00-10.9); Hematocrit 36.5 VOL% (42.0-52.0); Immature Granulocytes % 1.3 %; Immature Granulocytes Absolute 0.08 #; Lymphocytes # 1.8 10*3/uL (1.4-4.0); Lymphocytes % 30.1 % (21.2-54.2); Mean Corpuscular HGB Conc 32.9 GM/DL (32-36); Mean Corpuscular Hemoglobin 30 PG (27-34); Mean Corpuscular Volume 91.5 FL (87-102); Mean Platelet Volume 9.4 FL (9.6-12.0); Monocytes # 0.5 10*3/uL (0.11-0.8); Monocytes % 7.6 % (1.7-12.7); Neutrophils # 3.5 10*3/uL (1.4-7.4); Neutrophils % 57.7 % (38.7-73.9); Platelet Count 230 T/CUMM (130-400); Red Blood Count 3.99 MC/CUMM (3.8-5.5); Red Cell Distribution Width 13.5 % (9.3-17.3); White Blood Count 6.1 T/CUMM (4-12)
[2018-03-09] MEDS: ACETAMINOPHEN 325 MG TABLET PO PRN (06:14)
[2018-03-09 07:02] LABS: Albumin 2.2 G/DL (3.4-5.0); Bilirubin,Total 0.9 MG/DL (0.2-1.0); Calcium 9.3 MG/DL (8.5-10.1); Osmolality,Calculated 282.3 MOS/KG (273-304); Potassium 4.3 MMOL/L (3.5-5.1); Total Protein 7.4 G/DL (6.4-8.3)
[2018-03-09] MEDS: SUCRALFATE 1 GM/10 ML UDCUP PO SCH ×4 (08:35→21:10)
[2018-03-09] MEDS: DULoxetine 30 MG CAPSULE PO SCH ×2 (08:35→21:10)
[2018-03-09] MEDS: PANTOPRAZOLE 40 MG TABLET PO SCH ×2 (08:35→21:10)
[2018-03-09] MEDS: ISOSORBIDE MONONITRATE 60 MG TABLET PO SCH (08:35)
[2018-03-09] MEDS: ENOXAPARIN 40 MG/0.4 ML SYRINGE SUBCUT SCH (08:35)
[2018-03-09] MEDS: FUROSEMIDE 20 MG TABLET PO SCH (08:36)
[2018-03-09] MEDS: ASPIRIN EC 81 MG TABLET PO SCH (08:36)
[2018-03-09] MEDS: LOSARTAN 50 MG TABLET PO SCH (08:36)
[2018-03-09] MEDS: ALLOPURINOL 100 MG TABLET PO SCH (08:36)
[2018-03-09] MEDS: CLOPIDOGREL 75 MG TABLET PO SCH (08:36)
[2018-03-09] MEDS: CYANOCOBALAMIN 500 MCG TABLET PO SCH (12:06)
[2018-03-09] MEDS: DIVALPROEX 500 MG TABLET PO SCH (21:10)
[2018-03-09] MEDS: ROSUVASTATIN 20 MG TABLET PO SCH (21:10)
[2018-03-10] MEDS: LEVOTHYROXINE 100 MCG TABLET PO SCH (05:41)
[2018-03-10 07:48] VITALS: BP 154/78
[2018-03-10] MEDS: LOSARTAN 50 MG TABLET PO SCH (08:32)
[2018-03-10] MEDS: FUROSEMIDE 20 MG TABLET PO SCH (08:32)
[2018-03-10] MEDS: CLOPIDOGREL 75 MG TABLET PO SCH (08:32)
[2018-03-10] MEDS: ALLOPURINOL 100 MG TABLET PO SCH (08:33)
[2018-03-10] MEDS: ASPIRIN EC 81 MG TABLET PO SCH (08:33)
[2018-03-10] MEDS: ISOSORBIDE MONONITRATE 60 MG TABLET PO SCH (08:33)
[2018-03-10] MEDS: ENOXAPARIN 40 MG/0.4 ML SYRINGE SUBCUT SCH (08:33)
[2018-03-10] MEDS: PANTOPRAZOLE 40 MG TABLET PO SCH (08:33)
[2018-03-10] MEDS: SUCRALFATE 1 GM/10 ML UDCUP PO SCH (08:33)
[2018-03-10] MEDS: INSULIN LISPRO 100 UNIT/ML SUBCUT SCH (08:33)
[2018-03-10] MEDS: DULoxetine 30 MG CAPSULE PO SCH (08:36)
== END 2018-03-10 09:50 | disposition home health service (06) | DRG 392 ==
LOC: N.ED 18:51 → N.EDINP 18:51 → SUATTDRO 22:47 → N.5E 23:31 → SUATTDRO 03-06 14:11
PROVIDERS: ADMIT Internal Medicine Nephrology; ATTEND Internal Medicine

== ENCOUNTER 2021-07-26 16:26 | Inpatient (IN) ==
[2021-07-26 18:01] LABS: Basophils % 0.4 % (0.0-0.8); Eosinophils # 0.1 10*3/uL (0.0-0.87); Hematocrit 38.9 VOL% (42.0-52.0); Hemoglobin 13.1 GM/DL (14.0-18.0); Immature Granulocytes % 0.7 %; Immature Granulocytes Absolute 0.05 #; Lymphocytes % 43.6 % (21.2-54.2); Mean Corpuscular HGB Conc 33.7 GM/DL (32-36); Mean Corpuscular Volume 91.7 FL (87-102); Mean Platelet Volume 9.3 FL (9.6-12.0); Monocytes # 0.4 10*3/uL (0.11-0.8); Monocytes % 6.3 % (1.7-12.7); Platelet Count 243 T/CUMM (130-400); Red Blood Count 4.24 MC/CUMM (3.8-5.5); Red Cell Distribution Width 14.2 % (9.3-17.3)
[2021-07-26 18:11] LABS: INR 0.9; PT Patient Result 10.3 SECS (10.5-12.0)
[2021-07-26 18:21] LABS: Albumin 3.2 G/DL (3.4-5.0); Bilirubin,Total 0.4 MG/DL (0.20-1.00); Calcium 8.8 MG/DL (8.5-10.1); Potassium 3.6 MMOL/L (3.5-5.1); Total Protein 7.1 G/DL (6.4-8.2)
[2021-07-26 18:23] LABS: Mucus,Urine Occasional /LPF (Occasional); RBC,Urine 2 /HPF (0-4); Sperm,Urine Occasional /HPF (Negative)
[2021-07-26 18:25] LABS: Bilirubin,Urine Negative (Negative); Blood, Urine Negative (Negative); Glucose,Urine (UA) Negative (Negative); Ketones,Urine Trace mg/dL (Negative); Nitrite,Urine Negative (Negative); Protein,Urine 2+ mg/dL (Negative); Urine Appearance Clear (Clear); Urine Color Yellow (Yellow); Urine Specific Gravity 1.025 (1.001-1.035); Urine Urobilinogen 0.2 eU/dL (<2.0); Urine pH 7.5 (4.5-8.0)
[2021-07-26] MEDS ORDERED: ONDANSETRON 4 MG/2 ML VIAL IV PRN (19:39)
[2021-07-26] MEDS ORDERED: GLUCAGON 1 MG VIAL IM PRN (19:39)
[2021-07-26] MEDS ORDERED: DEXTROSE 10% 250 ML BAG IV PRN (19:44)
[2021-07-26] MEDS: ENOXAPARIN 40 MG/0.4 ML SYRINGE SUBCUT SCH (21:49)
[2021-07-26] MEDS: INSULIN REGULAR 100 UNIT/ML SUBCUT SCH (21:54)
[2021-07-26] MEDS: LACTATED RINGERS 1,000 ML IV SCH (22:20)
[2021-07-27] MEDS: LEVOTHYROXINE 100 MCG TABLET PO SCH (05:14)
[2021-07-27 05:32] LABS: Basophils % 0.7 % (0.0-0.8); Eosinophils # 0.2 10*3/uL (0.0-0.87); Eosinophils % 2.5 % (0.00-10.9); Hematocrit 36.6 VOL% (42.0-52.0); Hemoglobin 12.2 GM/DL (14.0-18.0); Immature Granulocytes % 0.5 %; Immature Granulocytes Absolute 0.03 #; Lymphocytes # 2.9 10*3/uL (1.4-4.0); Lymphocytes % 47.7 % (21.2-54.2); Mean Corpuscular HGB Conc 33.3 GM/DL (32-36); Mean Corpuscular Volume 92.7 FL (87-102); Mean Platelet Volume 9.5 FL (9.6-12.0); Monocytes # 0.5 10*3/uL (0.11-0.8); Neutrophils % 40.6 % (38.7-73.9); Platelet Count 214 T/CUMM (130-400); Red Blood Count 3.95 MC/CUMM (3.8-5.5); Red Cell Distribution Width 14.4 % (9.3-17.3)
[2021-07-27 05:53] LABS: Calcium 8.5 MG/DL (8.5-10.1); Osmolality,Calculated 287.8 MOS/KG (273-304); Potassium 4.1 MMOL/L (3.5-5.1); Risk Ratio 3.26; VLDL Cholesterol 44.4 MG/DL
[2021-07-27] MEDS ORDERED: DEXTROSE 50% 25 GM/50 ML VIAL IV PRN (10:22)
[2021-07-27] MEDS ORDERED: GLUCAGON 1 MG VIAL IM PRN (10:22)
[2021-07-27] MEDS: INSULIN REGULAR 100 UNIT/ML SUBCUT SCH ×4 (10:23→21:24)
[2021-07-27] MEDS: ASPIRIN EC 81 MG TABLET PO SCH (10:30)
[2021-07-27] MEDS: CLOPIDOGREL 75 MG TABLET PO SCH (10:30)
[2021-07-27] MEDS: DULoxetine 30 MG CAPSULE PO SCH ×2 (12:04→21:22)
[2021-07-27] MEDS: levETIRAcetam 500 MG TABLET PO SCH ×2 (12:05→21:23)
[2021-07-27] MEDS: ACETAMINOPHEN 325 MG TABLET PO PRN (12:06)
[2021-07-27] MEDS: LACTATED RINGERS 1,000 ML IV SCH (12:06)
[2021-07-27] MEDS ORDERED: hydrALAZINE 20 MG/1 ML VIAL IV PRN (12:18)
[2021-07-27] MEDS ORDERED: glipiZIDE 5 MG TABLET PO SCH (16:30)
[2021-07-27] MEDS ORDERED: DONEPEZIL 10 MG TABLET PO SCH (21:00)
[2021-07-27] MEDS ORDERED: DIVALPROEX ER 500 MG TABLET PO SCH (21:00)
[2021-07-27] MEDS: ROSUVASTATIN 20 MG TABLET PO SCH (21:23)
[2021-07-27] MEDS: ENOXAPARIN 40 MG/0.4 ML SYRINGE SUBCUT SCH (21:24)
[2021-07-27] MEDS: traZODone 50 MG TABLET PO SCH (21:52)
[2021-07-28] MEDS: LACTATED RINGERS 1,000 ML IV SCH (05:23)
[2021-07-28 05:50] LABS: Basophils # 0.1 10*3/uL (0.0-0.2); Basophils % 1.1 % (0.0-0.8); Eosinophils # 0.1 10*3/uL (0.0-0.87); Eosinophils % 2.5 % (0.00-10.9); Hemoglobin 13.4 GM/DL (14.0-18.0); Immature Granulocytes % 0.5 %; Immature Granulocytes Absolute 0.03 #; Lymphocytes # 2.4 10*3/uL (1.4-4.0); Lymphocytes % 43.7 % (21.2-54.2); Mean Corpuscular HGB Conc 32.7 GM/DL (32-36); Mean Platelet Volume 9.5 FL (9.6-12.0); Monocytes # 0.4 10*3/uL (0.11-0.8); Monocytes % 7.9 % (1.7-12.7); Neutrophils % 44.3 % (38.7-73.9); Platelet Count 229 T/CUMM (130-400); Red Blood Count 4.41 MC/CUMM (3.8-5.5); Red Cell Distribution Width 14.4 % (9.3-17.3); White Blood Count 5.6 T/CUMM (4-12)
[2021-07-28] MEDS: LEVOTHYROXINE 100 MCG TABLET PO SCH (05:54)
[2021-07-28 06:11] LABS: Osmolality,Calculated 289.8 MOS/KG (273-304); Potassium 3.5 MMOL/L (3.5-5.1)
[2021-07-28] MEDS: INSULIN REGULAR 100 UNIT/ML SUBCUT SCH ×4 (08:08→20:27)
[2021-07-28] MEDS: levETIRAcetam 500 MG TABLET PO SCH ×2 (08:13→21:17)
[2021-07-28] MEDS: ASPIRIN EC 81 MG TABLET PO SCH (08:13)
[2021-07-28] MEDS: DULoxetine 30 MG CAPSULE PO SCH ×2 (08:13→21:18)
[2021-07-28] MEDS: CLOPIDOGREL 75 MG TABLET PO SCH (08:13)
[2021-07-28] MEDS: ACETAMINOPHEN 325 MG TABLET PO PRN (08:14)
[2021-07-28] MEDS ORDERED: NITROGLYCERIN SL 0.4 MG TABLET SL PRN (20:54)
[2021-07-28] MEDS: ISOSORBIDE MONONITRATE 60 MG TABLET PO SCH (21:16)
[2021-07-28] MEDS: traZODone 50 MG TABLET PO SCH (21:17)
[2021-07-28] MEDS: ROSUVASTATIN 20 MG TABLET PO SCH (21:17)
[2021-07-28] MEDS: DONEPEZIL 10 MG TABLET PO SCH (21:17)
[2021-07-28] MEDS: DIVALPROEX 500 MG TABLET PO SCH (21:18)
[2021-07-28] MEDS: LOSARTAN 50 MG TABLET PO SCH (21:18)
[2021-07-28] MEDS: ENOXAPARIN 40 MG/0.4 ML SYRINGE SUBCUT SCH (21:18)
[2021-07-29] MEDS: LEVOTHYROXINE 100 MCG TABLET PO SCH (05:46)
[2021-07-29] MEDS: LACTATED RINGERS 1,000 ML IV SCH ×2 (05:47→21:26)
[2021-07-29] MEDS: INSULIN REGULAR 100 UNIT/ML SUBCUT SCH ×4 (07:57→21:26)
[2021-07-29] MEDS: LOSARTAN 50 MG TABLET PO SCH (09:42)
[2021-07-29] MEDS: ASPIRIN EC 81 MG TABLET PO SCH (09:42)
[2021-07-29] MEDS: levETIRAcetam 500 MG TABLET PO SCH ×2 (09:43→21:25)
[2021-07-29] MEDS: ISOSORBIDE MONONITRATE 60 MG TABLET PO SCH (09:43)
[2021-07-29] MEDS: CLOPIDOGREL 75 MG TABLET PO SCH (09:43)
[2021-07-29] MEDS: DULoxetine 30 MG CAPSULE PO SCH ×2 (09:43→21:25)
[2021-07-29] MEDS: DONEPEZIL 10 MG TABLET PO SCH (21:24)
[2021-07-29] MEDS: carvediloL 3.125 MG TABLET PO SCH (21:24)
[2021-07-29] MEDS: traZODone 50 MG TABLET PO SCH (21:24)
[2021-07-29] MEDS: DIVALPROEX 500 MG TABLET PO SCH (21:24)
[2021-07-29] MEDS: ROSUVASTATIN 20 MG TABLET PO SCH (21:25)
[2021-07-29] MEDS: ENOXAPARIN 40 MG/0.4 ML SYRINGE SUBCUT SCH (21:26)
[2021-07-30] MEDS: LEVOTHYROXINE 100 MCG TABLET PO SCH (05:56)
[2021-07-30] MEDS: levETIRAcetam 500 MG TABLET PO SCH ×2 (09:13→21:06)
[2021-07-30] MEDS: CLOPIDOGREL 75 MG TABLET PO SCH (09:14)
[2021-07-30] MEDS: DULoxetine 30 MG CAPSULE PO SCH ×2 (09:14→21:07)
[2021-07-30] MEDS: carvediloL 3.125 MG TABLET PO SCH ×2 (09:15→21:06)
[2021-07-30] MEDS: ASPIRIN EC 81 MG TABLET PO SCH (09:15)
[2021-07-30] MEDS: LOSARTAN 50 MG TABLET PO SCH (09:16)
[2021-07-30] MEDS: ISOSORBIDE MONONITRATE 60 MG TABLET PO SCH (09:16)
[2021-07-30] MEDS: INSULIN REGULAR 100 UNIT/ML SUBCUT SCH ×4 (09:34→21:06)
[2021-07-30] MEDS: LACTATED RINGERS 1,000 ML IV SCH (15:14)
[2021-07-30] MEDS: DIVALPROEX 500 MG TABLET PO SCH (21:06)
[2021-07-30] MEDS: DONEPEZIL 10 MG TABLET PO SCH (21:06)
[2021-07-30] MEDS: ENOXAPARIN 40 MG/0.4 ML SYRINGE SUBCUT SCH (21:06)
[2021-07-30] MEDS: traZODone 50 MG TABLET PO SCH (21:07)
[2021-07-30] MEDS: ROSUVASTATIN 20 MG TABLET PO SCH (21:07)
[2021-07-31 05:27] LABS: Basophils % 0.6 % (0.0-0.8); Eosinophils # 0.1 10*3/uL (0.0-0.87); Eosinophils % 1.8 % (0.00-10.9); Hematocrit 35.2 VOL% (42.0-52.0); Hemoglobin 11.6 GM/DL (14.0-18.0); Immature Granulocytes % 0.8 %; Immature Granulocytes Absolute 0.05 #; Lymphocytes # 3.8 10*3/uL (1.4-4.0); Lymphocytes % 56.6 % (21.2-54.2); Mean Corpuscular Volume 93.6 FL (87-102); Mean Platelet Volume 9.3 FL (9.6-12.0); Monocytes # 0.6 10*3/uL (0.11-0.8); Monocytes % 8.7 % (1.7-12.7); Neutrophils % 31.5 % (38.7-73.9); Platelet Count 210 T/CUMM (130-400); Red Blood Count 3.76 MC/CUMM (3.8-5.5); Red Cell Distribution Width 14.1 % (9.3-17.3); White Blood Count 6.6 T/CUMM (4-12)
[2021-07-31 05:47] LABS: Calcium 8.4 MG/DL (8.5-10.1); Osmolality,Calculated 288.8 MOS/KG (273-304); Potassium 3.9 MMOL/L (3.5-5.1)
[2021-07-31 05:53] LABS: Atypical Lymphocytes Few; Eosinophils 1 % (0-10); Lymphocytes 59 % (20-55); Nucleated Red Blood Cells 1 (0-5); Total Cells Counted 100
[2021-07-31 05:55] LABS: Microcytosis 1+; Ovalocytes Few; Platelet Estimate Normal
[2021-07-31] MEDS: LEVOTHYROXINE 100 MCG TABLET PO SCH (06:43)
[2021-07-31] MEDS: LACTATED RINGERS 1,000 ML IV SCH (06:43)
[2021-07-31] MEDS: CLOPIDOGREL 75 MG TABLET PO SCH (09:06)
[2021-07-31] MEDS: LOSARTAN 50 MG TABLET PO SCH (09:06)
[2021-07-31] MEDS: levETIRAcetam 500 MG TABLET PO SCH ×2 (09:06→20:57)
[2021-07-31] MEDS: ASPIRIN EC 81 MG TABLET PO SCH (09:06)
[2021-07-31] MEDS: carvediloL 3.125 MG TABLET PO SCH ×2 (09:06→20:57)
[2021-07-31] MEDS: ISOSORBIDE MONONITRATE 60 MG TABLET PO SCH (09:07)
[2021-07-31] MEDS: INSULIN REGULAR 100 UNIT/ML SUBCUT SCH ×4 (09:29→21:04)
[2021-07-31] MEDS: DULoxetine 30 MG CAPSULE PO SCH ×2 (18:00→20:56)
[2021-07-31] MEDS: traZODone 50 MG TABLET PO SCH (20:57)
[2021-07-31] MEDS: DIVALPROEX 500 MG TABLET PO SCH (20:57)
[2021-07-31] MEDS: ENOXAPARIN 40 MG/0.4 ML SYRINGE SUBCUT SCH (20:57)
[2021-07-31] MEDS: DONEPEZIL 10 MG TABLET PO SCH (20:57)
[2021-07-31] MEDS: ROSUVASTATIN 20 MG TABLET PO SCH (20:57)
[2021-08-01 05:22] LABS: Basophils % 0.6 % (0.0-0.8); Eosinophils # 0.2 10*3/uL (0.0-0.87); Eosinophils % 2.4 % (0.00-10.9); Hematocrit 37.1 VOL% (42.0-52.0); Hemoglobin 12.1 GM/DL (14.0-18.0); Immature Granulocytes % 0.3 %; Immature Granulocytes Absolute 0.02 #; Lymphocytes # 3.3 10*3/uL (1.4-4.0); Mean Corpuscular HGB Conc 32.6 GM/DL (32-36); Mean Corpuscular Volume 93.5 FL (87-102); Mean Platelet Volume 9.6 FL (9.6-12.0); Monocytes # 0.5 10*3/uL (0.11-0.8); Monocytes % 8.1 % (1.7-12.7); Neutrophils % 34.6 % (38.7-73.9); Platelet Count 215 T/CUMM (130-400); Red Blood Count 3.97 MC/CUMM (3.8-5.5); Red Cell Distribution Width 14.3 % (9.3-17.3); White Blood Count 6.2 T/CUMM (4-12)
[2021-08-01] MEDS: LACTATED RINGERS 1,000 ML IV SCH (05:42)
[2021-08-01] MEDS: LEVOTHYROXINE 100 MCG TABLET PO SCH (05:42)
[2021-08-01 05:48] LABS: Eosinophils 2 % (0-10); Lymphocytes 48 % (20-55); Platelet Estimate Adequate; Total Cells Counted 100
[2021-08-01 05:49] LABS: Atypical Lymphocytes Few
[2021-08-01 05:53] LABS: Calcium 9.1 MG/DL (8.5-10.1); Potassium 3.6 MMOL/L (3.5-5.1)
[2021-08-01] MEDS ORDERED: carvediloL 3.125 MG TABLET PO SCH (08:00)
[2021-08-01] MEDS: INSULIN REGULAR 100 UNIT/ML SUBCUT SCH ×2 (08:06→11:51)
[2021-08-01] MEDS: CLOPIDOGREL 75 MG TABLET PO SCH (09:09)
[2021-08-01] MEDS: LOSARTAN 50 MG TABLET PO SCH (09:10)
[2021-08-01] MEDS: levETIRAcetam 500 MG TABLET PO SCH (09:10)
[2021-08-01] MEDS: ISOSORBIDE MONONITRATE 60 MG TABLET PO SCH (09:10)
[2021-08-01] MEDS: ASPIRIN EC 81 MG TABLET PO SCH (09:11)
[2021-08-01] MEDS: DULoxetine 30 MG CAPSULE PO SCH (09:12)
[2021-08-01 11:07] VITALS: BP 168/80
== END 2021-08-01 13:15 | disposition home or self-care (01) | DRG 57 ==
LOC: N.ED 16:26 → N.EDINP 19:39 → N.3E 20:40
PROVIDERS: ADMIT Emergency Medicine; ATTEND Emergency Medicine